=== PATIENT | female | born 1975 | race Caucasian/White ===

== ENCOUNTER 2016-08-23 06:58 | Inpatient (IN) | payer OTHER ==
[~2016-08-23] VITALS: Ht 175.3 cm; Wt 136.1 kg
[2016-08-23] VITALS (11 sets, daily range): BP systolic 96–145; BP diastolic 52–85
[~2016-08-23 06:58] MED LIST: CEPHALEXIN500 MG ORAL; CLINDAMYCIN HC150 MG ORAL; NORCO 5-325 TA1 EAC1 ORAL; VIBRAMYCIN100 MG ORAL
[2016-08-23] MEDS ORDERED: Bacitracin 50000 Units Vial ONE (07:33)
[2016-08-23] MEDS ORDERED: Lidocaine 1% 10mg/ml/Epi 0.005mg/ml 30ml vial INJ ONE (07:33)
[2016-08-23] MEDS ORDERED: Bacitracin Oint 15gm Tube TOPIC ONE (07:34)
[2016-08-23] MEDS ORDERED: LEXAPRO10 MG ORAL (07:34)
[2016-08-23 07:45] LABS: BASOPHILS % (AUTO) 1.1 % (0.0-2.0); EOSINOPHILS % (AUTO) 1.2 % (0.0-3.0); LYMPHOCYTES % (AUTO) 32.9 % (20.0-45.0); MEAN CORPUSCULAR HEMOGLOBIN 23.8 PG (27.0-31.0); MEAN CORPUSCULAR HGB CONC 31.3 G/DL (32.0-36.0); MEAN CORPUSCULAR VOLUME 76 FL (80-99); MONOCYTES % (AUTO) 8.8 % (1.0-10.0); NEUTROPHILS % (AUTO) 56.1 % (45.0-75.0); PLATELET COUNT 322 K/UL (150-450); RED BLOOD COUNT 4.42 M/UL (4.20-5.40); RED CELL DISTRIBUTION WIDTH 13.4 % (11.6-14.8); WHITE BLOOD COUNT 5.6 K/UL (4.8-10.8)
[2016-08-23 08:01] LABS: ANION GAP 16 (5-15); CALCIUM 9.3 mg/dL (8.6-10.2); CARBON DIOXIDE 26 mEQ/L (20-30); CHLORIDE 96 mEQ/L (98-107); CREATININE 0.7 mg/dL (0.5-0.9); GLOMERULAR FILTRATION RATE > 60 mL/min (>60); HEMOLYSIS 109; POTASSIUM 4.4 mEQ/L (3.4-4.9); SODIUM 138 mEQ/L (135-145)
--- NOTE | 2016-08-23 08:21 | Pre-Procedure Note/Attestation ---
Pre-Procedure Note/Attestation Complete Prior to Procedure Planned Procedure: bilateral Procedure Narrative: Debridement of bilateral groin/thigh region with flap closure Attestation I attest that I discussed the nature of the procedure; its benefits; risks and complications; and alternatives (and the risks and benefits of such alternatives ), prior to the procedure, with the patient (or the patient's legal technical service representative). I attest that, if there was a reasonable possibility of needing a blood transfusion, the patient (or the patient's legal technical service representative) was given the [facility] standardized written summary, pursuant to the José Miguel Fili Blood Safety Act ([place] Health and Safety Code # 1645, as amended). I attest that I re-evaluated the patient just prior to the surgery and that there has been no change in the patient's H&P, except as documented below: MARÍA ELENA LANDRUM Aug 23, 2016 08:21
[2016-08-23] MEDS ORDERED: Morphine Sulfate 2mg/ml Inj IVP PRN ×2 (08:30→10:00)
[2016-08-23] MEDS ORDERED: EPINEPHrine 1mg/1ml Amp ONE ×2 (08:39→09:41)
[2016-08-23] MEDS ORDERED: NS Irrig 1000ml ONE (09:00)
[2016-08-23] MEDS ORDERED: Midazolam 2mg/2ml Inj ONE (09:00)
[2016-08-23] MEDS ORDERED: LR 1000ml ONE (09:00)
[2016-08-23] MEDS ORDERED: Ketorolac 30mg Inj ONE (09:00)
[2016-08-23] MEDS ORDERED: fentaNYL 100 mcg/2 mL IV ONE (09:00)
[2016-08-23] MEDS ORDERED: Sterile Water Irrig 1000ml IRRIG ONE (09:00)
[2016-08-23] MEDS ORDERED: Heparin 5000 units/ml inj SUBQ ONE (09:00)
[2016-08-23] MEDS ORDERED: Morphine Sulfate 10mg/ml Inj ONE (09:00)
[2016-08-23] MEDS ORDERED: NS Irrig 1000ml IRRIG ONE (09:26)
[2016-08-23] MEDS ORDERED: Propofol 10mg/ml 20ml IV ONE (09:35)
[2016-08-23] MEDS: LR 1000ml 1,000 ML IVLG SCH ×2 (09:53→12:44)
--- NOTE | 2016-08-23 09:53 | Anethesia Preoperative Eval ---
Anesthesia Pre-op PMH/ROS General Date of Evaluation: Aug 23, 2016 Time of Evaluation: 08:50 Anesthesiologist: Hussain ASA Score: ASA 3 Mallampati Score Class I : Soft palate, uvula, fauces, pillars visible Class II: Soft palate, uvula, fauces visible Class III: Soft palate, base of uvula visible Class IV: Only hard plate visible Mallampati Classification: Class II Surgeon: Alaina Diagnosis: Recurrent hydradenitis Surgical Procedure: Excision and closure of bilateral groin wounds Anesthesia History: none Family History: no anesthesia problems Allergies: Coded Allergies: No Known Allergies (Unverified , 04/09/16) Medications: see eMAR Past Medical History Cardiovascular: Denies: CAD, HTN, GA, arrhythmia, other, valve dz Pulmonary: Reports: JOSÉ ANTONIO, Denies: COPD, asthma, other Gastrointestinal/Genitourinary: Reports: GERD, Denies: CRI, ESRD, other Neurologic/Psychiatric: Reports: depression/anxiety, Denies: CVA, TIA, dementia, other Endocrine: Denies: DM, hypothyroidism, other, steroids HEENT: Denies: TUSCARORA (L), TUSCARORA (R), cataract (L), cataract (R), glaucoma, other Hematology/Immune: Reports: anemia - mild, Denies: DVT, bleeding disorder, other Musculoskeletal/Integumentary: Reports: other - recurent HS, Denies: DDD, DJD, OA, RA, edema Other: obesity PMH Narrative: as above PSxH Narrative: see chart Anesthesia Pre-op Phys. Exam Physician Exam Last Vital Signs Date Time Temp Pulse Resp B/P Pulse Ox O2 Delivery O2 Flow Rate FiO2 08/23/16 07:47 97.7 62 20 109/66 100 Room Air Constitutional: NAD Neurologic: CN 2-12 intact Cardiovascular: RRR, no M/R/G Respiratory: CTA Gastrointestinal: other - obesity Airway Exam Mallampati Score: Class II MO: full Neck: flexible ROM: full Teeth: intact Dentures: no lower, no upper Anesthesia Pre-op A/P Labs Hematology Test 08/23/16 07:25 White Blood Count 5.6 K/UL (4.8-10.8) Red Blood Count 4.42 M/UL (4.20-5.40) Hemoglobin 10.5 G/DL (12.0-16.0) L Hematocrit 33.7 % (37.0-47.0) L Mean Corpuscular Volume 76 FL (80-99) L Mean Corpuscular Hemoglobin 23.8 PG (27.0-31.0) L Mean Corpuscular Hemoglobin Concent 31.3 G/DL (32.0-36.0) L Red Cell Distribution Width 13.4 % (11.6-14.8) Platelet Count 322 K/UL (150-450) Mean Platelet Volume 8.0 FL (6.5-10.1) Neutrophils (%) (Auto) 56.1 % (45.0-75.0) Lymphocytes (%) (Auto) 32.9 % (20.0-45.0) Monocytes (%) (Auto) 8.8 % (1.0-10.0) Eosinophils (%) (Auto) 1.2 % (0.0-3.0) Basophils (%) (Auto) 1.1 % (0.0-2.0) Chemistry Test 08/23/16 07:25 Sodium Level 138 mEQ/L (135-145) Potassium Level 4.4 mEQ/L (3.4-4.9) Chloride Level 96 mEQ/L (98-107) L Carbon Dioxide Level 26 mEQ/L (20-30) Anion Gap 16 (5-15) H Blood Urea Nitrogen 10 mg/dL (7-23) Creatinine 0.7 mg/dL (0.5-0.9) Estimat Glomerular Filtration Rate > 60 mL/min (>60) Glucose Level 95 mg/dL (74-106) Calcium Level 9.3 mg/dL (8.6-10.2) Urine Test Test 08/23/16 07:15 Urine HCG, Qualitative Negative Risk Assessment & Plan Assessment: ASA 3 Plan: GA with LMA Status Change Before Surgery: No Pre-Antibiotics Drug: Ancef 2gr. Given Within 1 Hr of Incision: Yes Time Given: 09:18 KENTON CALL M.D. Aug 23, 2016 09:53
[2016-08-23] MEDS ORDERED: Midazolam 2mg/2ml Inj IVP PRN (10:00)
[2016-08-23] MEDS ORDERED: DiphenhydrAMINE 50mg/ml Inj IVP PRN (10:00)
[2016-08-23] MEDS ORDERED: Metoclopramide 10mg/2ml Inj IVP PRN (10:00)
[2016-08-23] MEDS ORDERED: Ketorolac 30mg Inj IV PRN (10:00)
[2016-08-23] MEDS ORDERED: Hydromorphone 0.5mg/0.5ml inj IVP PRN (10:00)
[2016-08-23] MEDS ORDERED: Meperidine 25mg/ml Inj IV PRN (10:00)
--- NOTE | 2016-08-23 10:32 | Operative Note - PDOC ---
Operative Note Operative Note Pre-op Diagnosis: Bilateral groin abscesses and mons abscess Procedure: Debridement of bilateral groins and mons with flap closure Post-op Diagnosis: same as pre-op Surgeon: Alaina Design Engineer Products: [employer] Anesthesia: general Specimen: yes Complications: none Condition: stable Estimated Blood Loss: minimal Drains: none Implant(s) used?: No MARÍA ELENA LANDRUM Aug 23, 2016 10:32
--- NOTE | 2016-08-23 11:55 | Immediate Post-Op Evaluation ---
Immediate Post-Op Evalulation Immediate Post-Op Evalulation Procedure: Excision of bilateral groin hydradenitis Date of Evaluation: Aug 23, 2016 Time of Evaluation: 10:50 IV Fluids: 1000 Blood Products: none Estimated Blood Loss: min Urinary Output: none Blood Pressure Systolic: 126 Blood Pressure Diastolic: 72 Pulse Rate: 86 Respiratory Rate: 22 O2 Sat by Pulse Oximetry: 99 Temperature (Fahrenheit): 97.4 Pain Score (1-10): 2 Nausea: No Vomiting: No Complications none Patient Status: reacts, patent, none Hydration Status: adequate KENTON CALL M.D. Aug 23, 2016 11:55
--- NOTE | 2016-08-23 14:53 | History and Physical ---
History of Present Illness General Date patient seen: Aug 23, 2016 Time patient seen: 14:53 Reason for Hospitalization: groin abscess Present Illness HPI 41 y/o female with pmh of hidradenitis suppurative c/b groin abscess s/p I&D () who presents w/ recurrent groin abscesses/infection s/p excisional debridement and flap closure on 08/23/16. No periop or postop complications. No chest pain, dyspnea or palpitations. No n/v or abdominal pain. Postop pain appears well controlled. Allergies: Coded Allergies: No Known Allergies (Unverified , 04/09/16) Medication History Scheduled Escitalopram Oxalate* (Lexapro*), 10 MG ORAL DAILY, (Reported) Discontinued Medications Cephalexin* (Keflex*), 500 MG ORAL TID, (Reported) Discontinued Reason: Pt stopped taking med Cephalexin* (Keflex*), 500 MG ORAL EVERY 12 HOURS, (Reported) Discontinued Reason: Pt stopped taking med Clindamycin Hcl* (Clindamycin Hcl*), Unknown Dose ORAL FOUR TIMES A DAY, ( Reported) Discontinued Reason: Pt stopped taking med Doxycycline Hyclate* (Vibramycin*), Unknown Dose ORAL EVERY 12 HOURS, (Reported) Discontinued Reason: Pt stopped taking med Hydrocodone Bit/Acetaminophen 5-325* ([place] 5-325 Tablet*), 1 TAB ORAL Q6HR PRN for For Pain, (Reported) Discontinued Reason: Pt stopped taking med Patient History History Provided By: Patient, PMD Healthcare decision maker Resuscitation status Advanced Directive on File Past Medical/Surgical History Past Medical/Surgical History: (1) Hidradenitis suppurativa (2) Depressed bipolar I disorder in full remission (3) Depression Family History Family History: Patient reports no known family medical history. Social History Social History: (1) No significant social history Review of Systems ROS Narrative CONSTITUTIONAL: No weight loss, fever, chills, weakness or fatigue. HEENT: Eyes: No visual loss, blurred vision, double vision or yellow sclerae. Ears, Nose, Throat: No hearing loss, sneezing, congestion, runny nose or sore throat. SKIN: No rash or itching. CARDIOVASCULAR: No chest pain, chest pressure or chest discomfort. No palpitations or edema. RESPIRATORY: No shortness of breath, cough or sputum. GASTROINTESTINAL: No anorexia, nausea, vomiting or diarrhea. No abdominal pain or blood. NEUROLOGICAL: No headache, dizziness, syncope, paralysis, ataxia, numbness or tingling in the extremities. No change in bowel or bladder control. MUSCULOSKELETAL: No muscle, back pain, joint pain or stiffness. HEMATOLOGIC: No anemia, bleeding or bruising. LYMPHATICS: No enlarged nodes. No history of splenectomy. PSYCHIATRIC: No history of depression or anxiety. ENDOCRINOLOGIC: No reports of sweating, cold or heat intolerance. No polyuria or polydipsia. ALLERGIES: No history of asthma, hives, eczema or rhinitis. Physical Exam Last 24 Hour Vital Signs Date Time Temp Pulse Resp B/P Pulse Ox O2 Delivery O2 Flow Rate FiO2 08/23/16 12:00 97.2 64 18 113/65 100 Room Air 08/23/16 11:55 86 22 99 08/23/16 11:45 98.2 08/23/16 11:30 98.2 60 17 127/72 100 Nasal Cannula 3.0 08/23/16 11:15 62 25 129/76 100 Nasal Cannula 3.0 08/23/16 11:05 69 20 130/80 100 Simple Mask 6.0 08/23/16 10:54 67 16 135/81 100 Simple Mask 6.0 08/23/16 10:49 69 17 145/85 100 Simple Mask 6.0 08/23/16 10:44 97.0 88 19 129/79 100 Simple Mask 6.0 08/23/16 07:47 97.7 62 20 109/66 100 Room Air Laboratory Tests Test 08/23/16 07:15 08/23/16 07:25 Urine HCG, Qualitative Negative White Blood Count 5.6 K/UL (4.8-10.8) Red Blood Count 4.42 M/UL (4.20-5.40) Hemoglobin 10.5 G/DL (12.0-16.0) L Hematocrit 33.7 % (37.0-47.0) L Mean Corpuscular Volume 76 FL (80-99) L Mean Corpuscular Hemoglobin 23.8 PG (27.0-31.0) L Mean Corpuscular Hemoglobin Concent 31.3 G/DL (32.0-36.0) L Red Cell Distribution Width 13.4 % (11.6-14.8) Platelet Count 322 K/UL (150-450) Mean Platelet Volume 8.0 FL (6.5-10.1) Neutrophils (%) (Auto) 56.1 % (45.0-75.0) Lymphocytes (%) (Auto) 32.9 % (20.0-45.0) Monocytes (%) (Auto) 8.8 % (1.0-10.0) Eosinophils (%) (Auto) 1.2 % (0.0-3.0) Basophils (%) (Auto) 1.1 % (0.0-2.0) Sodium Level 138 mEQ/L (135-145) Potassium Level 4.4 mEQ/L (3.4-4.9) Chloride Level 96 mEQ/L (98-107) L Carbon Dioxide Level 26 mEQ/L (20-30) Anion Gap 16 (5-15) H Blood Urea Nitrogen 10 mg/dL (7-23) Creatinine 0.7 mg/dL (0.5-0.9) Estimat Glomerular Filtration Rate > 60 mL/min (>60) Glucose Level 95 mg/dL (74-106) Calcium Level 9.3 mg/dL (8.6-10.2) Height (Feet): 5 Height (Inches): 9.00 Weight (Pounds): 300 Medications Current Medications Medications (Trade) Dose Ordered Sig/Carl Route PRN Reason Start Time Stop Time Status Last Admin Dose Admin Acetaminophen (Tylenol) 650 mg Q6H PRN ORAL Fever/Headache/Mild Pain 08/23/16 15:00 09/22/16 14:59 Acetaminophen/ Hydrocodone Bitart ([place] 5/325) 1 tab Q4H PRN ORAL Moderate Pain (Pain Scale 4-6) 08/23/16 15:00 08/30/16 14:59 Heparin Sodium (Porcine) (Heparin 5000 units/ml) 5,000 units Q12HR SUBQ 08/23/16 21:00 09/22/16 20:59 Hydromorphone HCl (Dilaudid) 1 mg Q1H PRN SUBQ Severe Pain (Pain Scale 7-10) 08/23/16 15:00 08/30/16 14:59 Lactated Ringer's (Lactated Ringer's 1000ml) 1,000 ml @ 50 mls/hr Q20H IV 08/23/16 16:00 09/22/16 15:59 Ondansetron HCl 4 mg 4 mg Q6H PRN IVP Nausea & Vomiting 08/23/16 15:00 09/22/16 14:59 Objective Narrative General: alert, cooperative, no distress, appears stated age Head: normocephalic, without obvious abnormality, atraumatic Eyes: conjunctivae/corneas clear. PERRL, EOM's intact Throat: lips, mucosa, and tongue normal. MMM Neck: supple, symmetrical, trachea midline, and no JVD Lungs: clear to auscultation bilaterally Heart: regular rate and rhythm, S1, S2 normal, no murmur, click, rub or gallop Abdomen: soft, non-tender, non-distended, bowel sounds normal; no masses or organomegaly Extremities: extremities normal, atraumatic, no cyanosis or edema Pulses: 2+ and symmetric Skin: skin color, texture, turgor normal; no rashes or lesions Dressings c/d/i Neurologic: grossly normal, no focal deficits Assessment/Plan Problem List: (1) Groin abscess ICD Codes: L02.214 - Cutaneous abscess of groin SNOMED: [id number] Status: stable Assessment/Plan s/p excisional debridement and flap closure on 08/23/16, POD#0 - appreciate plastic surgery rec's - cont IV ancef - encourage mobilization/ambulation - encourage incentive spirometry to optimize pulmonary hygiene - DVT/GI prophylaxis as appropriate - pain control, supportive care, bowel regimen - cont home Roxann Phipps M.D. Aug 23, 2016 14:53
[2016-08-23] MEDS ORDERED: Norco 5mg/325mg tab ORAL PRN (15:00)
[2016-08-23] MEDS ORDERED: HYDROmorphone 1mg/ml Carpuject SUBQ PRN (15:00)
[2016-08-23] MEDS: LR 1000ml 1,000 ML IV SCH (15:51)
--- NOTE | 2016-08-23 16:48 | Operative Note - Dictated ---
DATE OF OPERATION: 08/23/2016 PREOPERATIVE DIAGNOSES: 1. Right groin abscess/infection. 2. Left groin abscess/infection. 3. Mons abscess/infection. POSTOPERATIVE DIAGNOSES: 1. Right groin abscess/infection. 2. Left groin abscess/infection. 3. Mons abscess/infection. PROCEDURES: 1. Excisional debridement of right infected groin tissue. 2. Excisional debridement of left infected groin tissue. 3. Excisional debridement of infected mons tissue. 4. Elevation of a fasciocutaneous groin flap for closure of right groin wound. 5. Elevation of a fasciocutaneous medial thigh flap for closure of right groin wound. 6. Elevation of a fasciocutaneous groin flap for closure of left groin wound. 7. Elevation of a medial thigh flap for closure of left groin wound. 8. Elevation of fasciocutaneous flap for closure of mons wound. 9. Elevation of an inferior fasciocutaneous flap for closure of mons wound. SURGEON: Veronica Foley M.D. SALES SUPPORT COORDINATOR: Raisa Hammer M.D. ANESTHESIA: General. EBL: Minimal. COMPLICATIONS: None. SPECIMEN: Right and left groin as well as mons tissue. DISPOSITION: Stable to the recovery room. INDICATIONS FOR SURGERY: This is a 41-year-old female, who presented to me in the office for her bilateral groin abscesses as well as mons abscess. She was felt to be an appropriate candidate for debridement and reconstruction. We obtained an authorization from the insurance company in the form of a gap exception or an in-network exception to allow for us to provide this service to the patient and for her to undergo reconstruction following the debridement. She understood the risks and benefits of surgery and agreed to proceed. DETAILS OF THE OPERATION: The patient was brought to the operating room and laid in the lithotomy position on the operating table. Her lower abdomen, groin, and perineal regions were prepped and draped in a sterile usual fashion. There were 3 discrete areas, one in the left groin, on in the right groin, and one in the mons, which were all delineated using elliptical type of designs. Once this was done, a total of 10 mL of lidocaine with epinephrine was injected into the regions of the markings. We first began by addressing the left groin. A 10 blade was used to make the elliptical incision all the way around the infected areas and we were able to completely excise it down to healthy bleeding fat. In a similar fashion, the mons tissue was debrided with a #10 blade down to skin removing it all the way down to the level of the subcutaneous fat and appeared to be healthy wound, and the last was the right groin wound, which was addressed by an elliptical incision made to allow for the excisional debridement all way down to the level of the subcutaneous fat. Once this was done, the wound was copiously irrigated with pulse lavage. Hemostasis was achieved and we then began to assess the wounds and the ability to be closed primarily and this was not possible. As such, flaps had to be elevated to allow for a tension-free repair of the wounds. We first began on the right groin. A fasciocutaneous groin flap was elevated with undermining performed to fully mobilize the flap, with proximal and distal incisions made to fully mobilize the flap as well, with perforators off of the pudendal artery perfusing this flap. Following this, a medial thigh flap based off of perforators of the superficial femoral artery was elevated. This was performed by elevating at the fasciocutaneous level with proximal and distal incisions also made to fully mobilize the flap. With both flaps fully mobilized, it was noted that the wound could be closed without tension. We then proceeded to perform a similar flap elevation on the contralateral left groin with an elevation of a groin flap with proximal and distal incisions made to fully mobilize the flap, again having a similar blood supply as the contralateral side. A medial thigh flap based off of perforators of the superficial femoral artery was elevated on the left side with proximal and distal incisions made to fully mobilize the flap at the fasciocutaneous level. Again with both flaps elevated, there was noted to be good approximation without tension. Finally, a superior fasciocutaneous flap and an inferior fasciocutaneous flap were elevated for closure of the mons wound. First the superior flap was elevated with a full-thickness flap elevated with proximal and distal incisions made to fully mobilize the flap with perforators off of the deep inferior epigastric artery feeding this flap, and for the inferior fasciocutaneous flap, a similar full-thickness flap was elevated with proximal and distal incisions made to fully mobilize the flap with a similar blood supply to the superior flap. The wounds were then again copiously irrigated and were closed in layered fashion using #0 and 2-0 Vicryl sutures, and multiple interrupted 2-0 Prolene sutures were used to close the skin. Dermabond was then placed and compressive dressings were applied. The patient tolerated the procedure well. There were no complications. Veronica Foley M.D. DR: JERONIMO JOB#: [id number] CC:
[2016-08-23] MEDS: ceFAZolin sod 1 GM in D5W 55 ML IVPB SCH (18:40)
[2016-08-23] MEDS: Heparin 5000 units/ml inj SUBQ SCH (19:59)
[2016-08-24] VITALS: BP 111/65
[2016-08-24] MEDS: ceFAZolin sod 1 GM in D5W 55 ML IVPB SCH ×3 (00:13→16:24)
[2016-08-24 04:00] VITALS: BP 103/62
[2016-08-24] MEDS: LR 1000ml 1,000 ML IV SCH (05:33)
[2016-08-24 08:00] VITALS: BP 135/87
[2016-08-24] MEDS: Heparin 5000 units/ml inj SUBQ SCH (09:11)
--- NOTE | 2016-08-24 10:29 | 48 Hour Post Anesthesia Eval ---
Post Anesthesia Evaluation Procedure: Excision of bilateral groin hydradenitis Date of Evaluation: Aug 24, 2016 Time of Evaluation: 10:28 Blood Pressure Systolic: 137 0: 74 Pulse Rate: 80 Respiratory Rate: 20 Temperature (Fahrenheit): 98.1 O2 Sat by Pulse Oximetry: 98 Airway: patent Nausea: No Vomiting: No Pain Intensity: 3 Hydration Status: adequate Cardiopulmonary Status: Stable Mental Status/LOC: patient returned to baseline Follow-up Care/Observations: na Post-Anesthesia Complications: na Follow-up care needed: N/A JAXON GARG M.D. Aug 24, 2016 10:29
[2016-08-24 12:22] VITALS: BP 103/64
[2016-08-24 16:00] VITALS: BP 102/57
[2016-08-24] MEDS ORDERED: KEFLEX500 MG ORAL (16:10)
--- NOTE | 2016-08-24 16:12 | Discharge Summary ---
Discharge Summary Hospital Course Date of Admission Aug 23, 2016 at 12:00 Date of Discharge 08/24/16 Admitting Diagnosis Groin abscess Reason for Hospitalization: Surgery HPI 41 y/o female with pmh of hidradenitis suppurative c/b groin abscess s/p I&D () who presents w/ recurrent groin abscesses/infection. Consultations Plastic surgery Procedures 08/23/16 1. Excisional debridement of right infected groin tissue. 2. Excisional debridement of left infected groin tissue. 3. Excisional debridement of infected mons tissue. 4. Elevation of a fasciocutaneous groin flap for closure of right groin wound. 5. Elevation of a fasciocutaneous medial thigh flap for closure of right groin wound. 6. Elevation of a fasciocutaneous groin flap for closure of left groin wound. 7. Elevation of a medial thigh flap for closure of left groin wound. 8. Elevation of fasciocutaneous flap for closure of mons wound. 9. Elevation of an inferior fasciocutaneous flap for closure of mons wound. Hospital Course Pt underwent excisional debridement and flap closure on 08/23/16. Once pt's pain was controlled and wounds stable, pt was discharged. Extra time spent was 32 min above and beyond normal encounter time including counseling/coordination of care. Discussed with patient pain control, disposition, prescriptions, outpatient followup. Discharge Medications New Medications: Cephalexin* (Keflex*) 500 Mg Capsule 500 MG ORAL Q6H for 7 Days, #28 CAP 0 Refills Continued Medications: Escitalopram Oxalate* (Lexapro*) 10 Mg Tablet 10 MG ORAL DAILY, TAB Hydrocodone Bit/Acetaminophen 5-325* ([place] 5-325 Tablet*) 1 Each Tablet 1 TAB ORAL Q6HR PRN for For Pain, #30 TAB Ibuprofen* (Motrin*) 600 Mg Tablet 800 MG ORAL Q8H PRN for For Pain, #45 TAB 0 Refills Ondansetron Odt* (Zofran Odt*) 4 Mg Tab.rapdis 4 MG ORAL Q6H PRN for Nausea & Vomiting, #30 TAB Discharge Condition Upon Discharge: stable Discharge Disposition Patient was discharged to Home (01) Discharge Diagnoses: (1) Groin abscess (2) Hidradenitis suppurativa Roxann Wilcox M.D. Aug 24, 2016 16:12
[2016-08-24] MEDS ORDERED: ZOFRAN ODT4 MG ORAL (17:15)
[2016-08-24] MEDS ORDERED: IBUPROFEN600 MG ORAL (17:16)
[2016-08-24] MEDS ORDERED: NORCO 5-325 TA1 EAC1 ORAL (17:17)
[2016-08-24] MEDS ORDERED: Tubing IV Secondary IV ONE (17:49)
[2016-08-24] MEDS ORDERED: LR 1000ml ONE (17:49)
== END 2016-08-24 17:50 | disposition home or self-care (01) | DRG 572 ==
LOC: SUR 06:58 → 3E 12:00 → SUR 12:00 → 3E 12:00
DX: L02.214 Cutaneous abscess of groin (principal); F32.9 Major depressive disorder, single episode, unspecified; L73.2 Hidradenitis suppurativa; L02.215 Cutaneous abscess of perineum
CPT/HCPCS: 36415; 80048; 81025; 85025; 94003; 94150; J2250; J2405; J2765

== ENCOUNTER 2016-09-20 07:21 | Inpatient (IN) | payer OTHER ==
[~2016-09-20] VITALS: Ht 175.3 cm; Wt 136.1 kg
[2016-09-20] VITALS (9 sets, daily range): BP systolic 110–137; BP diastolic 59–84
[~2016-09-20 07:21] MED LIST changes: +IBUPROFEN600 MG ORAL; +KEFLEX500 MG ORAL; +LEXAPRO10 MG ORAL; +ZOFRAN ODT4 MG ORAL
[2016-09-20] MEDS ORDERED: Zemuron 50mg/5ml Inj IV ONE (07:22)
[2016-09-20] MEDS ORDERED: Ketorolac 30mg Inj ONE (07:22)
[2016-09-20] MEDS ORDERED: Propofol 10mg/ml 20ml IV ONE ×2 (07:22→10:41)
[2016-09-20] MEDS ORDERED: Succinylcholine 20mg/ml 10ml vial ONE (07:22)
[2016-09-20] MEDS ORDERED: fentaNYL 100 mcg/2 mL IV ONE (07:22)
[2016-09-20] MEDS ORDERED: Midazolam 2mg/2ml Inj ONE (07:22)
[2016-09-20] MEDS ORDERED: Glycopyrrolate 0.2mg/ml 1ml Vial ONE (07:22)
[2016-09-20] MEDS ORDERED: Neostigmine 1mg/ml 10ml Inj ONE (07:22)
[2016-09-20] MEDS ORDERED: LR 1000ml ONE (07:22)
--- NOTE | 2016-09-20 08:15 | Pre-Procedure Note/Attestation ---
Pre-Procedure Note/Attestation Complete Prior to Procedure Planned Procedure: bilateral Procedure Narrative: Closure of groin wounds and debridement of buttock wounds with flap closure Attestation I attest that I discussed the nature of the procedure; its benefits; risks and complications; and alternatives (and the risks and benefits of such alternatives ), prior to the procedure, with the patient (or the patient's legal retail field representative). I attest that, if there was a reasonable possibility of needing a blood transfusion, the patient (or the patient's legal retail field representative) was given the [facility] standardized written summary, pursuant to the José Miguel Fili Blood Safety Act ([place] Health and Safety Code # 1645, as amended). I attest that I re-evaluated the patient just prior to the surgery and that there has been no change in the patient's H&P, except as documented below: MARÍA ELENA LANDRUM Sep 20, 2016 08:15
[2016-09-20 08:27] LABS: BASOPHILS % (AUTO) 1.2 % (0.0-2.0); EOSINOPHILS % (AUTO) 1.5 % (0.0-3.0); LYMPHOCYTES % (AUTO) 33.2 % (20.0-45.0); MEAN CORPUSCULAR HEMOGLOBIN 23.6 PG (27.0-31.0); MEAN CORPUSCULAR VOLUME 79 FL (80-99); MEAN PLATELET VOLUME 7.8 FL (6.5-10.1); MONOCYTES % (AUTO) 8.8 % (1.0-10.0); NEUTROPHILS % (AUTO) 55.2 % (45.0-75.0); PLATELET COUNT 313 K/UL (150-450); RED BLOOD COUNT 4.41 M/UL (4.20-5.40); RED CELL DISTRIBUTION WIDTH 15.4 % (11.6-14.8); WHITE BLOOD COUNT 5.6 K/UL (4.8-10.8)
[2016-09-20 08:36] LABS: PROTHROMBIN TIME 10.6 SEC (9.30-11.50)
[2016-09-20 08:49] LABS: ANION GAP 13 (5-15); CARBON DIOXIDE 26 mEQ/L (20-30); CHLORIDE 100 mEQ/L (98-107); CREATININE 0.7 mg/dL (0.5-0.9); GLOMERULAR FILTRATION RATE > 60 mL/min (>60); HEMOLYSIS 2; POTASSIUM 3.7 mEQ/L (3.4-4.9); SODIUM 139 mEQ/L (135-145)
[2016-09-20] MEDS ORDERED: Surgicel 4in x 8in TOPIC ONE (08:54)
[2016-09-20] MEDS ORDERED: Bacitracin 50000 Units Vial ONE (08:55)
[2016-09-20] MEDS ORDERED: Lidocaine 1% 10mg/ml/Epi 0.005mg/ml 30ml vial INJ ONE (08:55)
[2016-09-20] MEDS ORDERED: EPINEPHrine 1mg/1ml Amp ONE (08:55)
[2016-09-20] MEDS ORDERED: NS Irrig 1000ml IRRIG ONE (11:05)
[2016-09-20] MEDS ORDERED: LR 1000ml 1,000 ML IVLG SCH (12:15)
[2016-09-20] MEDS ORDERED: Metoclopramide 10mg/2ml Inj IVP PRN (12:15)
[2016-09-20] MEDS ORDERED: Ketorolac 30mg Inj IV PRN (12:15)
[2016-09-20] MEDS ORDERED: Hydromorphone 0.5mg/0.5ml inj IVP PRN (12:15)
[2016-09-20] MEDS ORDERED: DiphenhydrAMINE 50mg/ml Inj IVP PRN (12:15)
[2016-09-20] MEDS ORDERED: Meperidine 25mg/ml Inj IV PRN (12:15)
[2016-09-20] MEDS ORDERED: Midazolam 2mg/2ml Inj IVP PRN (12:15)
--- NOTE | 2016-09-20 12:15 | Anethesia Preoperative Eval ---
Anesthesia Pre-op PMH/ROS General Date of Evaluation: Sep 20, 2016 Time of Evaluation: 10:50 Anesthesiologist: Hussain ASA Score: ASA 3 Mallampati Score Class I : Soft palate, uvula, fauces, pillars visible Class II: Soft palate, uvula, fauces visible Class III: Soft palate, base of uvula visible Class IV: Only hard plate visible Mallampati Classification: Class II Surgeon: Alaina Diagnosis: Recurrent HS Surgical Procedure: Revision and closure of bilateral groin wounds Anesthesia History: none Social History: smoking - h/o Family History: no anesthesia problems Allergies: Coded Allergies: No Known Allergies (Unverified , 04/09/16) Past Medical History Cardiovascular: Denies: CAD, HTN, [place], arrhythmia, other, valve dz Pulmonary: Reports: JOSÉ ANTONIO, Denies: COPD, asthma, other Gastrointestinal/Genitourinary: Reports: GERD, Denies: CRI, ESRD, other Neurologic/Psychiatric: Reports: depression/anxiety, Denies: CVA, TIA, dementia, other Endocrine: Denies: DM, hypothyroidism, other, steroids HEENT: Denies: [place] (L), [place] (R), cataract (L), cataract (R), glaucoma, other Hematology/Immune: Reports: anemia - mild, Denies: DVT, bleeding disorder, other Musculoskeletal/Integumentary: Reports: other - recurrent HS, Denies: DDD, DJD, OA, RA, edema Other: obesity PMH Narrative: as above PSxH Narrative: see chart Anesthesia Pre-op Phys. Exam Physician Exam Last Vital Signs Date Time Temp Pulse Resp B/P Pulse Ox O2 Delivery O2 Flow Rate FiO2 09/20/16 07:35 97.5 61 20 110/61 99 Room Air Constitutional: NAD Neurologic: CN 2-12 intact Cardiovascular: RRR, no M/R/G Respiratory: CTA Gastrointestinal: other - obesity Airway Exam Mallampati Score: Class II MO: full Neck: flexible ROM: full Teeth: intact Dentures: no lower, no upper Anesthesia Pre-op A/P Labs Hematology Test 09/20/16 08:00 White Blood Count 5.6 K/UL (4.8-10.8) Red Blood Count 4.41 M/UL (4.20-5.40) Hemoglobin 10.4 G/DL (12.0-16.0) L Hematocrit 34.7 % (37.0-47.0) L Mean Corpuscular Volume 79 FL (80-99) L Mean Corpuscular Hemoglobin 23.6 PG (27.0-31.0) L Mean Corpuscular Hemoglobin Concent 30.0 G/DL (32.0-36.0) L Red Cell Distribution Width 15.4 % (11.6-14.8) H Platelet Count 313 K/UL (150-450) Mean Platelet Volume 7.8 FL (6.5-10.1) Neutrophils (%) (Auto) 55.2 % (45.0-75.0) Lymphocytes (%) (Auto) 33.2 % (20.0-45.0) Monocytes (%) (Auto) 8.8 % (1.0-10.0) Eosinophils (%) (Auto) 1.5 % (0.0-3.0) Basophils (%) (Auto) 1.2 % (0.0-2.0) Coagulation Test 09/20/16 08:00 Prothrombin Time 10.6 SEC (9.30-11.50) Prothromb Time International Ratio 1.0 (0.9-1.1) Activated Partial Thromboplast Time 24 SEC (23-33) Chemistry Test 09/20/16 08:00 Sodium Level 139 mEQ/L (135-145) Potassium Level 3.7 mEQ/L (3.4-4.9) Chloride Level 100 mEQ/L (98-107) Carbon Dioxide Level 26 mEQ/L (20-30) Anion Gap 13 (5-15) Blood Urea Nitrogen 10 mg/dL (7-23) Creatinine 0.7 mg/dL (0.5-0.9) Estimat Glomerular Filtration Rate > 60 mL/min (>60) Glucose Level 98 mg/dL (74-106) Calcium Level 9.0 mg/dL (8.6-10.2) Risk Assessment & Plan Assessment: ASA 3 Plan: GA with ETT Status Change Before Surgery: No Pre-Antibiotics Drug: Ancef 2gr. Given Within 1 Hr of Incision: Yes Time Given: 11:20 KENTON CALL M.D. Sep 20, 2016 12:14
--- NOTE | 2016-09-20 12:51 | Operative Note - PDOC ---
Operative Note Operative Note Pre-op Diagnosis: Groin and thigh wounds Procedure: Debridement of groin and thigh wounds with flap closure Post-op Diagnosis: same as pre-op Surgeon: Alaina Nursing Unit Clerk: Harman Anesthesia: general Specimen: yes Complications: none Condition: stable Estimated Blood Loss: minimal Drains: none Implant(s) used?: No MARÍA ELENA LANDRUM Sep 20, 2016 12:51
[2016-09-20] MEDS ORDERED: Zolpidem 5mg tab ORAL PRN (13:00)
--- NOTE | 2016-09-20 13:33 | Immediate Post-Op Evaluation ---
Immediate Post-Op Evalulation Immediate Post-Op Evalulation Procedure: Revision and closure of bilateral groin wounds Date of Evaluation: Sep 20, 2016 Time of Evaluation: 13:32 IV Fluids: 1100 Blood Products: none Estimated Blood Loss: 50 Urinary Output: 200 Blood Pressure Systolic: 132 Blood Pressure Diastolic: 62 Pulse Rate: 72 Respiratory Rate: 20 O2 Sat by Pulse Oximetry: 99 Temperature (Fahrenheit): 97.4 Pain Score (1-10): 2 Nausea: No Vomiting: No Complications none Patient Status: reacts, patent, extubated, none Hydration Status: adequate KENTON CALL M.D. Sep 20, 2016 13:33
[2016-09-20] MEDS ORDERED: Rate Change PCA 1 Each MISC PRN (14:00)
[2016-09-20] MEDS: PCA HYDROmorphone 1mg/ml 30 ML IV PRN (14:07)
--- NOTE | 2016-09-20 14:28 | History and Physical ---
History of Present Illness General Date patient seen: Sep 20, 2016 Time patient seen: 14:25 Present Illness HPI 41 y/o female with hx of hidradenitis, s/p I+D earlier today. No periop or postop complications. No chest pain or dyspnea. Postop pain well controlled. No n/v. Allergies: Coded Allergies: No Known Allergies (Unverified , 04/09/16) Medication History Scheduled Escitalopram Oxalate* (Lexapro*), 10 MG ORAL DAILY, (Reported) Discontinued Medications Cephalexin* (Keflex*), 500 MG ORAL Q6H Discontinued Reason: Pt stopped taking med Hydrocodone Bit/Acetaminophen 5-325* ([place] 5-325 Tablet*), 1 TAB ORAL Q6HR PRN for For Pain, (Reported) Discontinued Reason: Pt stopped taking med Ibuprofen* (Motrin*), 800 MG ORAL Q8H PRN for For Pain, (Reported) Discontinued Reason: Pt stopped taking med Ondansetron Odt* (Zofran Odt*), 4 MG ORAL Q6H PRN for Nausea & Vomiting, ( Reported) Discontinued Reason: Pt stopped taking med Patient History History Provided By: Patient Healthcare decision maker Resuscitation status Advanced Directive on File Family History Family History: Patient reports no known family medical history. Social History Social History: (1) No significant social history Review of Systems ROS Narrative Patient in PACU Physical Exam Physical Exam Narrative Not examined, pt in PACU Last 24 Hour Vital Signs Date Time Temp Pulse Resp B/P Pulse Ox O2 Delivery O2 Flow Rate FiO2 09/20/16 14:19 49 20 137/69 100 Nasal Cannula 3.0 09/20/16 14:07 18 09/20/16 14:04 52 20 127/72 100 Simple Mask 8.0 09/20/16 13:33 52 20 127/72 100 Simple Mask 8.0 09/20/16 13:33 72 20 99 09/20/16 13:28 76 20 134/80 99 Simple Mask 8.0 09/20/16 13:23 97.6 82 20 130/84 99 Simple Mask 8.0 09/20/16 07:35 97.5 61 20 110/61 99 Room Air Laboratory Tests Test 09/20/16 08:00 White Blood Count 5.6 K/UL (4.8-10.8) Red Blood Count 4.41 M/UL (4.20-5.40) Hemoglobin 10.4 G/DL (12.0-16.0) L Hematocrit 34.7 % (37.0-47.0) L Mean Corpuscular Volume 79 FL (80-99) L Mean Corpuscular Hemoglobin 23.6 PG (27.0-31.0) L Mean Corpuscular Hemoglobin Concent 30.0 G/DL (32.0-36.0) L Red Cell Distribution Width 15.4 % (11.6-14.8) H Platelet Count 313 K/UL (150-450) Mean Platelet Volume 7.8 FL (6.5-10.1) Neutrophils (%) (Auto) 55.2 % (45.0-75.0) Lymphocytes (%) (Auto) 33.2 % (20.0-45.0) Monocytes (%) (Auto) 8.8 % (1.0-10.0) Eosinophils (%) (Auto) 1.5 % (0.0-3.0) Basophils (%) (Auto) 1.2 % (0.0-2.0) Prothrombin Time 10.6 SEC (9.30-11.50) Prothromb Time International Ratio 1.0 (0.9-1.1) Activated Partial Thromboplast Time 24 SEC (23-33) Sodium Level 139 mEQ/L (135-145) Potassium Level 3.7 mEQ/L (3.4-4.9) Chloride Level 100 mEQ/L (98-107) Carbon Dioxide Level 26 mEQ/L (20-30) Anion Gap 13 (5-15) Blood Urea Nitrogen 10 mg/dL (7-23) Creatinine 0.7 mg/dL (0.5-0.9) Estimat Glomerular Filtration Rate > 60 mL/min (>60) Glucose Level 98 mg/dL (74-106) Calcium Level 9.0 mg/dL (8.6-10.2) Height (Feet): 5 Height (Inches): 9.00 Weight (Pounds): 300 Medications Current Medications Medications (Trade) Dose Ordered Sig/Carl Route PRN Reason Start Time Stop Time Status Last Admin Dose Admin Acetaminophen (Tylenol) 325 mg Q4H PRN ORAL Mild Pain (Pain Scale 1-3) 09/20/16 12:15 09/20/16 18:00 Diphenhydramine HCl (Benadryl) 25 mg Q15M PRN IVP Itching 09/20/16 12:15 09/20/16 18:00 Heparin Sodium (Porcine) (Heparin 5000 units/ml) 5,000 units EVERY 12 HOURS SUBQ 09/20/16 21:00 10/20/16 20:59 UNV Hydromorphone HCl (Dilaudid) 0.5 mg Q15M PRN IVP Severe Pain (Pain Scale 7-10) 09/20/16 12:15 09/20/16 18:00 09/20/16 14:19 Hydromorphone HCl (Dilaudid) 2 mg Q3H PRN SUBQ Severe Pain (Pain Scale 7-10) 09/20/16 14:02 09/22/16 14:01 Hydromorphone HCl (Dilaudid) 2 mg Q4H PRN IVP Moderate Pain (Pain Scale 4-6) 09/20/16 14:02 09/22/16 14:01 Hydromorphone HCl (SENIOR DATA ARCHITECT Dilaudid) 30 ml @ 0 mls/hr Q24H PRN IV For Pain 09/20/16 14:00 09/22/16 13:59 09/20/16 14:07 Ketorolac Tromethamine (Toradol 30mg) 30 mg Q1H PRN IV Severe Breakthru Pain (>7) 09/20/16 12:15 09/20/16 18:00 Meperidine HCl (Demerol) 50 mg Q15M PRN IV Shivering 09/20/16 12:15 09/20/16 18:00 Midazolam HCl (Versed 2mg/2ml vial) 1 mg Q15M PRN IVP For Anxiety 09/20/16 12:15 09/20/16 18:00 Miscellaneous Medication (SENIOR DATA ARCHITECT Rate Change) 1 ea DAILY PRN MISC rate change 09/20/16 14:00 09/22/16 13:59 Miscellaneous Medication (SENIOR DATA ARCHITECT shift volume) 1 ea Q12HR@0700,1900 MISC 09/20/16 19:00 09/22/16 18:59 Ondansetron HCl (Zofran) 4 mg Q6H PRN IVP Nausea & Vomiting 09/20/16 13:00 10/20/16 12:59 UNV Zolpidem Tartrate 5 mg 5 mg DAILYPRN PRN ORAL Insomnia 09/20/16 13:00 10/20/16 12:59 UNV Assessment/Plan Problem List: (1) Groin abscess Assessment & Plan: - s/p I+D POD#0 - Start IV abx - encourage mobilization/ambulation - encourage incentive spirometry to optimize pulmonary hygiene - DVT/GI prophylaxis as appropriate - ctm CBC and hemodynamics - ctm electrolytes, adjust/replete prn - PT/OT/ST, if indicated - pain control, supportive care, bowel regimen ICD Codes: L02.214 - Cutaneous abscess of groin SNOMED: 28415410 ENID DAVIS Sep 20, 2016 14:28
[2016-09-20] MEDS: PCA shift volume MISC SCH (15:06)
[2016-09-20] MEDS: ceFAZolin sod 1 GM in NS 55 ML IVPB SCH (17:43)
--- NOTE | 2016-09-20 19:58 | Operative Note - Dictated ---
DATE OF OPERATION: 09/20/2016 PREOPERATIVE DIAGNOSES: Bilateral groin and bilateral buttock/thigh wounds. POSTOPERATIVE DIAGNOSES: Bilateral groin and bilateral buttock/thigh wounds. PROCEDURES: 1. Left groin wound debridement. 2. Elevation of a superior fasciocutaneous flap for closure of left groin wound. 3. Elevation of an inferior fasciocutaneous flap for closure of right groin wound. 4. Debridement of right groin wound. 5. Elevation of a superior fasciocutaneous flap for closure of right groin wound. 6. Elevation of an inferior fasciocutaneous flap for closure of right groin wound. 7. Debridement of right inner thigh wound. 8. Elevation of the medial thigh flap for closure of right inner thigh wound. 9. Debridement of left thigh wound. 10. Elevation of a medial thigh flap for closure of left thigh wound. 11. Debridement of perianal tissue x2. 12. Complex closure of perianal tissue measuring total of 8.5 centimeters. SURGEON: Veronica Foley M.D. VEGETABLE VENDOR: Raisa Hammer M.D. ANESTHESIA: General. ESTIMATED BLOOD LOSS: 25 mL. SPECIMEN: Included a total of six different tissue specimen. DRAINS: None. COMPLICATIONS: None. DISPOSITION: Stable to the recovery room. INDICATIONS FOR SURGERY: This is a 41-year-old female, who presents with multiple groin and buttock wound in consideration for debridement and reconstruction. She understands the risks and benefits of surgery and agrees to proceed. DETAILS OF THE OPERATION: The patient was brought to the operating room and laid in the lithotomy position in the operating room table. Her bilateral groin and buttock regions were prepped and draped in a sterile and usual fashion. We began first by using a #10 blade to debride the left groin wound which measured 8 x 2 cm. Once the wound was debrided down to healthy bleeding tissue, a superior fasciocutaneous flap was elevated with proximal and distal incisions made to fully mobilize the flap with perforators off of the deep inferior epigastric artery perfusing this flap. In a similar fashion, an inferior fasciocutaneous flap based off of perforators of the superficial femoral artery was elevated to allow for its closure of this left groin wound. The wound was then copiously irrigated with pulse lavage and the two flaps were brought together in opposition using #0 and 2-0 Vicryl sutures and 3-0 Monocryl was used to close the skin. We then turned our attention to the right groin wound. In a similar fashion, this wound was debrided using a #10 blade and electrocautery. We then elevated a superior fasciocutaneous flap based off of perforators of the deep inferior epigastric artery with proximal and distal incisions made to fully mobilize the flap and then an inferior fasciocutaneous flap was elevated based off of perforators of the superficial femoral artery with proximal and distal incisions made to fully mobilize the flap. Pulse lavage irrigation was used. Hemostasis was achieved. The flap was brought together in opposition using #0 and 2-0 Vicryl sutures and 3-0 Monocryl was used to close the skin with interrupted 2-0 Prolene vertical mattress type sutures. We then turned our attention to the right inner thigh wound where the k[place] were made as an elliptical type of incision. A #10 blade was used to debride the wound down to healthy bleeding tissue. A single medial thigh tissue flap had to be elevated to allow for a tension-free closure of this wound. After the wound was copiously irrigated with pulse lavage, the flap that was elevated based off of perforators of the superficial femoral artery was fully mobilized by proximal and distal incisions to fully mobilize it and was brought together to the opposing edge using #0 and 2-0 Vicryl sutures and a 2-0 Prolene was used to close the skin. In a similar fashion, the left inner thigh wound was debrided and also a medial thigh tissue flap was elevated based on perforators of the superficial femoral artery with proximal and distal incisions made to fully mobilize the flap. The wound was then irrigated with pulse lavage. Hemostasis was achieved and the wound was then closed with 2-0 Prolene sutures. Lastly there was two areas of perianal tissue that were debrided using a #10 blade and a complex closure was pursued following the debridement of the edges using 0, 2-0 Vicryl sutures and 3-0 chromic was used to close the skin. The patient tolerated the procedure well. There was no complications. Veronica Foley M.D. DR: Radha JOB#: [id number] CC:
[2016-09-20] MEDS: Heparin 5000 units/ml inj SUBQ SCH (20:51)
[2016-09-21] VITALS: BP 93/59
[2016-09-21] MEDS: ceFAZolin sod 1 GM in NS 55 ML IVPB SCH ×3 (02:41→18:46)
[2016-09-21 04:00] VITALS: BP 106/58
[2016-09-21] MEDS: PCA shift volume MISC SCH ×2 (07:18→19:00)
[2016-09-21 08:00] VITALS: BP 98/48
--- NOTE | 2016-09-21 08:04 | 48 Hour Post Anesthesia Eval ---
Post Anesthesia Evaluation Procedure: Revision and closure of bilateral groin wounds Date of Evaluation: Sep 21, 2016 Time of Evaluation: 08:03 Blood Pressure Systolic: 108 0: 72 Pulse Rate: 84 Respiratory Rate: 20 Temperature (Fahrenheit): 97.6 O2 Sat by Pulse Oximetry: 98 Airway: patent Nausea: No Vomiting: No Pain Intensity: 3 Hydration Status: adequate Cardiopulmonary Status: stable Mental Status/LOC: patient returned to baseline Follow-up Care/Observations: n/a Post-Anesthesia Complications: none Follow-up care needed: N/A KENTON CALL M.D. Sep 21, 2016 08:04
[2016-09-21 12:00] VITALS: BP 106/62
[2016-09-21] MEDS: Heparin 5000 units/ml inj SUBQ SCH ×2 (12:19→20:39)
[2016-09-21 16:00] VITALS: BP 106/63
--- NOTE | 2016-09-21 16:45 | General Progress Note ---
Progress Note Progress Note Pt seen and examined. She is doing well POD# 1 AVSS Continue abx and pain meds. MD DIALLO Cornell AMIR Sep 21, 2016 16:45
[2016-09-21] MEDS: PCA HYDROmorphone 1mg/ml 30 ML IV PRN (16:49)
--- NOTE | 2016-09-21 18:39 | General Progress Note ---
Assessment/Plan Problem List: (1) Groin abscess Assessment & Plan: - s/p I+D POD#1 - ContIV abx - encourage mobilization/ambulation - encourage incentive spirometry to optimize pulmonary hygiene - DVT/GI prophylaxis as appropriate - ctm CBC and hemodynamics - ctm electrolytes, adjust/replete prn - PT/OT/ST, if indicated - pain control, supportive care, bowel regimen A total of 31 mins of prolonged service time was spent with the patient in care coordination and counseling in addition to the face to face time for the visit. ICD Codes: L02.214 - Cutaneous abscess of groin SNOMED: [id number] Subjective Date patient seen: Sep 21, 2016 Time patient seen: 18:37 ROS Limited/Unobtainable: No Allergies: Coded Allergies: No Known Allergies (Unverified , 04/09/16) Subjective POD#1, no periop or psotop complications. No chest pain or dyspnea, no n/v, postop pain well controlled. Objective Last 24 Hour Vital Signs Date Time Temp Pulse Resp B/P Pulse Ox O2 Delivery O2 Flow Rate FiO2 09/21/16 16:09 20 09/21/16 16:00 99.1 53 16 106/63 98 Room Air 09/21/16 13:36 20 09/21/16 12:00 98.6 71 18 106/62 99 Room Air 09/21/16 08:04 84 20 98 09/21/16 08:00 97.9 76 18 98/48 96 Room Air 09/21/16 08:00 18 09/21/16 04:00 98.2 61 20 106/58 94 Room Air 09/21/16 04:00 18 09/21/16 00:00 18 09/21/16 00:00 97.9 59 19 93/59 97 Room Air 09/20/16 20:00 97.7 56 20 113/59 98 Room Air 09/20/16 20:00 18 Intake and Output 09/20/16 09/21/16 19:00 07:00 Intake Total 1355 ml 240 ml Output Total 250 ml 400 ml Balance 1105 ml -160 ml Intake Oral 300 ml 240 ml IV Total 1055 ml Output Urine Total 200 ml 400 ml Estimated Blood Loss 50 ml # Voids 1 1 Height (Feet): 5 Height (Inches): 9.00 Weight (Pounds): 300 Objective General: alert, cooperative, no distress, appears stated age Head: normocephalic, without obvious abnormality, atraumatic Eyes: conjunctivae/corneas clear. PERRL, EOM's intact Throat: lips, mucosa, and tongue normal. MMM Neck: supple, symmetrical, trachea midline, and no JVD Lungs: clear to auscultation bilaterally Heart: regular rate and rhythm, S1, S2 normal, no murmur, click, rub or gallop Abdomen: soft, non-tender, non-distended, bowel sounds normal; no masses or organomegaly Extremities: extremities normal, atraumatic, no cyanosis or edema Pulses: 2+ and symmetric Skin: skin color, texture, turgor normal; no rashes or lesions Neurologic: grossly normal, no focal deficits ENID DAVIS Sep 21, 2016 18:39
[2016-09-21 20:00] VITALS: BP 101/53
[2016-09-22] MEDS: ceFAZolin sod 1 GM in NS 55 ML IVPB SCH ×3 (02:22→18:22)
[2016-09-22 04:00] VITALS: BP 109/58
[2016-09-22] MEDS: PCA shift volume MISC SCH ×2 (07:11→19:12)
[2016-09-22 08:00] VITALS: BP 107/66
[2016-09-22] MEDS: Heparin 5000 units/ml inj SUBQ SCH ×2 (09:21→22:02)
[2016-09-22] MEDS ORDERED: Tubing IV Secondary IV ONE (09:59)
[2016-09-22 11:59] VITALS: BP 110/70
--- NOTE | 2016-09-22 12:11 | General Progress Note ---
Assessment/Plan Problem List: (1) Groin abscess Assessment & Plan: - s/p I+D POD#2 - Cont IV abx - encourage mobilization/ambulation - encourage incentive spirometry to optimize pulmonary hygiene - DVT/GI prophylaxis as appropriate - ctm CBC and hemodynamics - ctm electrolytes, adjust/replete prn - PT/OT/ST, if indicated - pain control, supportive care, bowel regimen A total of 31 mins of prolonged service time was spent with the patient in care coordination and counseling in addition to the face to face time for the visit. ICD Codes: L02.214 - Cutaneous abscess of groin SNOMED: [id number] Subjective Date patient seen: Sep 22, 2016 Time patient seen: 12:10 ROS Limited/Unobtainable: No Allergies: Coded Allergies: No Known Allergies (Unverified , 04/09/16) Subjective POD#2, no periop or psotop complications. No chest pain or dyspnea, no n/v, postop pain well controlled. Objective Last 24 Hour Vital Signs Date Time Temp Pulse Resp B/P Pulse Ox O2 Delivery O2 Flow Rate FiO2 09/22/16 11:59 97.8 64 18 110/70 98 Room Air 09/22/16 08:00 20 09/22/16 08:00 97.3 67 18 107/66 97 Room Air 09/22/16 04:00 98.1 63 18 109/58 97 Room Air 09/22/16 04:00 20 09/22/16 00:00 20 09/21/16 21:37 99.1 09/21/16 20:00 20 09/21/16 20:00 98.1 69 18 101/53 98 Room Air 09/21/16 16:09 20 09/21/16 16:00 99.1 53 16 106/63 98 Room Air 09/21/16 13:36 20 Intake and Output 09/21/16 09/22/16 18:59 06:59 Intake Total 655 ml 555 ml Output Total 1400 ml 700 ml Balance -745 ml -145 ml Intake Oral 600 ml 500 ml IV Total 55 ml 55 ml Output Urine Total 1400 ml 700 ml Height (Feet): 5 Height (Inches): 9.00 Weight (Pounds): 300 Objective General: alert, cooperative, no distress, appears stated age Head: normocephalic, without obvious abnormality, atraumatic Eyes: conjunctivae/corneas clear. PERRL, EOM's intact Throat: lips, mucosa, and tongue normal. MMM Neck: supple, symmetrical, trachea midline, and no JVD Lungs: clear to auscultation bilaterally Heart: regular rate and rhythm, S1, S2 normal, no murmur, click, rub or gallop Abdomen: soft, non-tender, non-distended, bowel sounds normal; no masses or organomegaly Extremities: extremities normal, atraumatic, no cyanosis or edema Pulses: 2+ and symmetric Skin: skin color, texture, turgor normal; no rashes or lesions Neurologic: grossly normal, no focal deficits ENID DAVIS Sep 22, 2016 12:11
[2016-09-22] MEDS ORDERED: PCA HYDROmorphone 1mg/ml 30 ML IV PRN (15:00)
[2016-09-22] MEDS ORDERED: Rate Change PCA 1 Each MISC PRN (15:00)
[2016-09-22 16:00] VITALS: BP 107/67
[2016-09-22] MEDS ORDERED: PCA shift volume MISC SCH (19:00)
[2016-09-22 20:00] VITALS: BP 103/51
[2016-09-23] MEDS: ceFAZolin sod 1 GM in NS 55 ML IVPB SCH ×2 (03:22→09:24)
[2016-09-23 04:00] VITALS: BP 113/59
[2016-09-23] MEDS: PCA shift volume MISC SCH (07:19)
[2016-09-23 08:00] VITALS: BP 103/50
[2016-09-23] MEDS: Heparin 5000 units/ml inj SUBQ SCH (09:32)
[2016-09-23 12:00] VITALS: BP 103/53
[2016-09-23] MEDS ORDERED: NS 550ML IV ONE (13:50)
--- NOTE | 2016-09-23 13:59 | Discharge Summary ---
Discharge Summary Hospital Course Date of Admission Sep 20, 2016 at 15:05 Date of Discharge September 23, 2016 Admitting Diagnosis Groin abscess Reason for Hospitalization: as above HPI Rosalia Griffin is a 41 year old female who was admitted on Sep 20, 2016 at 15 :05 for Bilateral Buttock Hydronosis Consultations Plastic Surgery Procedures See Operative reports Hospital Course 41 y/o female with groin abscess, s/p I+D and flap elevation surgeries without periop or postop complications. Once pain controlled and wounds were stable, she was dced home on percocet/zofran/doxy, and will f/u with Dr. Foley in a week postop Discharge Medications Continued Medications: Escitalopram Oxalate* (Lexapro*) 10 Mg Tablet 10 MG ORAL DAILY, TAB Discharge Condition Upon Discharge: stable Discharge Disposition Patient was discharged to home Discharge Diagnoses: (1) Inguinal abscess (2) Hidradenitis suppurativa (3) Depressed bipolar I disorder in full remission ENID DAVIS Sep 23, 2016 13:59
[2016-09-23] MEDS ORDERED: PERCOCET 5-3251 EACH ORAL ×3 (14:46→14:47)
[2016-09-23] MEDS ORDERED: ZOFRAN4 M3 ORAL (14:48)
[2016-09-23] MEDS ORDERED: DOXYCYCLINE MO100 M2 PO (14:49)
--- NOTE | 2016-09-27 23:20 | Diagnostic Imaging Report ---
APPROVED REPORT CPT Code: 48961 Present Symptoms Comments: Post op groin area dressings (BLE) Hx of Hidradenitis R/O DVT BILATERAL: Imaging reveals a patent deep venous system bilaterally. There is no evidence of thrombus within the superficial femoral, popliteal or tibial segments. The greater saphenous veins are also within normal limits. Doppler indicates normal spontaneous flow within these segments. The common femoral veins were not imaged.
== END 2016-09-23 16:40 | disposition home or self-care (01) | DRG 571 ==
LOC: SUR 07:21 → 3E 15:05 → SUR 09-21 12:27 → UNDOADMIN 09-21 12:40 → 3E 09-21 12:40
PROC: 0JXM0ZZ Transfer Left Upper Leg Subcutaneous Tissue and Fascia, Open Approach (ICD-10-PCS; principal; 2016-09-20 11:00)
PROC: 0JBB0ZZ Excision of Perineum Subcutaneous Tissue and Fascia, Open Approach (ICD-10-PCS; principal; 2016-09-20 11:00)
PROC: 0JBM0ZZ Excision of Left Upper Leg Subcutaneous Tissue and Fascia, Open Approach (ICD-10-PCS; principal; 2016-09-20 11:00)
PROC: 0JBL0ZZ Excision of Right Upper Leg Subcutaneous Tissue and Fascia, Open Approach (ICD-10-PCS; principal; 2016-09-20 11:00)
PROC: 0JXL0ZZ Transfer Right Upper Leg Subcutaneous Tissue and Fascia, Open Approach (ICD-10-PCS; principal; 2016-09-20 11:00)
PROC: 0JXF0ZZ Transfer Left Upper Arm Subcutaneous Tissue and Fascia, Open Approach (ICD-10-PCS; principal; 2016-09-20 11:00)
PROC: 0JX80ZZ Transfer Abdomen Subcutaneous Tissue and Fascia, Open Approach (ICD-10-PCS; principal; 2016-09-20 11:00)
PROC: 0JB80ZZ Excision of Abdomen Subcutaneous Tissue and Fascia, Open Approach (ICD-10-PCS; principal; 2016-09-20 11:00)
DX: L02.214 Cutaneous abscess of groin (principal); L02.416 Cutaneous abscess of left lower limb; L02.415 Cutaneous abscess of right lower limb; L73.2 Hidradenitis suppurativa
CPT/HCPCS: 36415; 80048; 85025; 85610; 85730; 93970; 94003; 94150; J2250; J2405; J2710; J2765

== ENCOUNTER 2016-11-01 09:36 | Inpatient (IN) | payer OTHER ==
[2016-11-01] VITALS (14 sets, daily range): BP systolic 89–130; BP diastolic 46–79
[~2016-11-01] VITALS: Ht 172.7 cm; Wt 136.1 kg
[~2016-11-01 09:36] MED LIST changes: +Bacitracin 50000 Units Vial ONE; +DOXYCYCLINE MO100 M2 PO; +Lidocaine 1% 10mg/ml/Epi 0.005mg/ml 30ml vial INJ ONE; +Lidocaine 2% 20mg/ml/Epi 0.005mg/ml 20ml vial ONE; +PERCOCET 5-3251 EACH ORAL; +Propofol 10mg/ml 20ml IV ONE; +Surgicel 4in x 8in TOPIC ONE; +ZOFRAN4 M3 ORAL
--- NOTE | 2016-11-01 09:47 | Anethesia Preoperative Eval ---
Anesthesia Pre-op PMH/ROS General Date of Evaluation: November 01, 2016 Time of Evaluation: 09:44 Anesthesiologist: Hussain ASA Score: ASA 3 Mallampati Score Class I : Soft palate, uvula, fauces, pillars visible Class II: Soft palate, uvula, fauces visible Class III: Soft palate, base of uvula visible Class IV: Only hard plate visible Mallampati Classification: Class II Surgeon: Alaina Diagnosis: Recurrent HS Surgical Procedure: Excision of pilonidal cyst Anesthesia History: none Family History: no anesthesia problems Allergies: Coded Allergies: No Known Allergies (Unverified , 04/09/16) Medications: see eMAR Past Medical History Cardiovascular: Denies: CAD, HTN, [place], arrhythmia, other, valve dz Pulmonary: Reports: JOSÉ ANTONIO, Denies: COPD, asthma, other Gastrointestinal/Genitourinary: Reports: GERD, Denies: CRI, ESRD, other Neurologic/Psychiatric: Reports: depression/anxiety, Denies: CVA, TIA, dementia, other Endocrine: Denies: DM, hypothyroidism, other, steroids HEENT: Denies: [place] (L), [place] (R), cataract (L), cataract (R), glaucoma, other Hematology/Immune: Reports: anemia - mild, Denies: DVT, bleeding disorder, other Musculoskeletal/Integumentary: Denies: DDD, DJD, OA, RA, edema, other Other: obesity PMH Narrative: as above PSxH Narrative: Multiple Sx for HS treatment Anesthesia Pre-op Phys. Exam Physician Exam Constitutional: NAD Neurologic: CN 2-12 intact Cardiovascular: RRR, no M/R/G Respiratory: CTA Gastrointestinal: other - obesity Airway Exam Mallampati Score: Class II MO: full Neck: Flexible ROM: full Teeth: intact Dentures: no lower, no upper Anesthesia Pre-op A/P Labs see chart Studies Pre-op Studies: EKG - NSR Risk Assessment & Plan Assessment: ASA 3 Plan: GA with ETT prone position Status Change Before Surgery: No Pre-Antibiotics Drug: Ancef 2 gr. Given Within 1 Hr of Incision: Yes Time Given: 10:30 KENTON CALL M.D. November 01, 2016 09:47
--- NOTE | 2016-11-01 09:56 | Pre-Procedure Note/Attestation ---
Pre-Procedure Note/Attestation Complete Prior to Procedure Planned Procedure: not applicable Procedure Narrative: Excision of pilonidal cyst with flap reconstruction Attestation I attest that I discussed the nature of the procedure; its benefits; risks and complications; and alternatives (and the risks and benefits of such alternatives ), prior to the procedure, with the patient (or the patient's legal sales representative livestock). I attest that, if there was a reasonable possibility of needing a blood transfusion, the patient (or the patient's legal sales representative livestock) was given the [facility] standardized written summary, pursuant to the [employer] Miguel Fili Blood Safety Act ([place] Health and Safety Code # 1645, as amended). I attest that I re-evaluated the patient just prior to the surgery and that there has been no change in the patient's H&P, except as documented below: MARÍA ELENA LANDRUM November 01, 2016 09:56
[2016-11-01] MEDS ORDERED: LR 1000ml ONE (10:00)
[2016-11-01] MEDS ORDERED: Succinylcholine 20mg/ml 10ml vial ONE (10:00)
[2016-11-01] MEDS ORDERED: Sterile Water Irrig 1000ml IRRIG ONE (10:00)
[2016-11-01] MEDS ORDERED: Metoclopramide 10mg/2ml Inj IVP PRN ×2 (10:00→11:30)
[2016-11-01] MEDS ORDERED: NS Irrig 1000ml ONE (10:00)
[2016-11-01] MEDS ORDERED: Ketorolac 30mg Inj ONE (10:00)
[2016-11-01] MEDS ORDERED: Midazolam 2mg/2ml Inj ONE (10:00)
[2016-11-01] MEDS ORDERED: Propofol 10mg/ml 20ml IV ONE (10:00)
[2016-11-01] MEDS ORDERED: Morphine Sulfate 10mg/ml Inj ONE (10:00)
[2016-11-01] MEDS ORDERED: Rate Change PCA 1 Each MISC PRN (10:00)
[2016-11-01] MEDS ORDERED: Glycopyrrolate 0.2mg/ml 1ml Vial ONE (10:00)
[2016-11-01] MEDS ORDERED: fentaNYL 100 mcg/2 mL IV ONE (10:00)
[2016-11-01] MEDS ORDERED: Neostigmine 1mg/ml 10ml Inj ONE (10:00)
[2016-11-01] MEDS ORDERED: Nimbex 2mg/ml Inj 10ML IVP ONE (10:00)
[2016-11-01] MEDS ORDERED: LR 1000ml 1,000 ML IVLG SCH (11:21)
[2016-11-01] MEDS ORDERED: fentaNYL 100 mcg/2 mL IV PRN (11:30)
[2016-11-01] MEDS ORDERED: Ketorolac 30mg Inj IV PRN (11:30)
[2016-11-01] MEDS ORDERED: Meperidine 25mg/0.5ml Inj IV PRN (11:30)
[2016-11-01] MEDS ORDERED: DiphenhydrAMINE 50mg/ml Inj IVP PRN (11:30)
[2016-11-01] MEDS ORDERED: Midazolam 2mg/2ml Inj IVP PRN (11:30)
[2016-11-01] MEDS ORDERED: Hydromorphone 0.5mg/0.5ml inj IVP PRN (11:30)
--- NOTE | 2016-11-01 11:49 | Operative Note - PDOC ---
Operative Note Operative Note Pre-op Diagnosis: Pilondal cyst and buttock wounds Post-op Diagnosis: same as pre-op Surgeon: Alaina General Manager Road Production: Harman Anesthesia: general Specimen: yes Complications: none Condition: stable Estimated Blood Loss: minimal Drains: HERSON Implant(s) used?: No MARÍA ELENA LANDRUM November 01, 2016 11:49
--- NOTE | 2016-11-01 12:14 | Immediate Post-Op Evaluation ---
Immediate Post-Op Evalulation Immediate Post-Op Evalulation Procedure: Excision of pilonidal cyst Date of Evaluation: November 01, 2016 Time of Evaluation: 12:12 IV Fluids: 1100 Blood Products: none Estimated Blood Loss: 50 Urinary Output: none Blood Pressure Systolic: 123 Blood Pressure Diastolic: 61 Pulse Rate: 76 Respiratory Rate: 22 O2 Sat by Pulse Oximetry: 99 Temperature (Fahrenheit): 97.4 Pain Score (1-10): 2 Nausea: No Vomiting: No Complications none Patient Status: reacts, patent, extubated, none Hydration Status: adequate KENTON CALL M.D. November 01, 2016 12:14
[2016-11-01] MEDS: PCA HYDROmorphone 1mg/ml 30 ML IV PRN (12:41)
[2016-11-01] MEDS ORDERED: Naloxone 0.4mg/ml Inj IV PRN (15:15)
[2016-11-01] MEDS ORDERED: Heparin 5000 units/ml inj SUBQ SCH (16:00)
--- NOTE | 2016-11-01 17:09 | History and Physical ---
History of Present Illness General Date patient seen: November 01, 2016 Time patient seen: 17:02 Present Illness HPI 41 y/o woman with hx of hidradenitis suppurativa presenting with pain from pilonidal cyst, admitted earlier today and underwent an uneventful I+D. No periop or postop complications. No chest pain or dyspnea, no n/v, postop pain well controlled. Allergies: Coded Allergies: No Known Allergies (Unverified , 04/09/16) Medication History Scheduled Escitalopram Oxalate* (Lexapro*), 10 MG ORAL DAILY, (Reported) Discontinued Medications Doxycycline Monohydrate (Doxycycline Monohydrate), 100 MG PO BID, (Reported) Discontinued Reason: Pt stopped taking med Ondansetron* (Zofran*), 4 MG ORAL Q6H PRN for Nausea & Vomiting, (Reported) Discontinued Reason: Pt stopped taking med Oxycodone/Acetaminophen 5-325* (Percocet 5-325 Mg Tablet*), 1 TAB ORAL Q4H PRN for For Pain, (Reported) Discontinued Reason: Pt stopped taking med Oxycodone/Acetaminophen 5-325* (Percocet 5-325 Mg Tablet*), 1 TAB ORAL Q6H PRN for For Pain, (Reported) Discontinued Reason: Pt stopped taking med Oxycodone/Acetaminophen 5-325* (Percocet 5-325 Mg Tablet*), 2 TAB ORAL Q6H PRN for For Pain, (Reported) Discontinued Reason: Pt stopped taking med Patient History History Provided By: Patient Healthcare decision maker N Resuscitation status Full Code Advanced Directive on File No Family History Family History: Patient reports no known family medical history. Social History Social History: (1) No significant social history Review of Systems Genitourinary: Reports: pain ROS Narrative CONSTITUTIONAL: No weight loss, fever, chills, weakness or fatigue. HEENT: Eyes: No visual loss, blurred vision, double vision or yellow sclerae. Ears, Nose, Throat: No hearing loss, sneezing, congestion, runny nose or sore throat. SKIN: No rash or itching. CARDIOVASCULAR: No chest pain, chest pressure or chest discomfort. No palpitations or edema. RESPIRATORY: No shortness of breath, cough or sputum. GASTROINTESTINAL: No anorexia, nausea, vomiting or diarrhea. No abdominal pain or blood. NEUROLOGICAL: No headache, dizziness, syncope, paralysis, ataxia, numbness or tingling in the extremities. No change in bowel or bladder control. MUSCULOSKELETAL: No muscle, back pain, joint pain or stiffness. HEMATOLOGIC: No anemia, bleeding or bruising. LYMPHATICS: No enlarged nodes. No history of splenectomy. PSYCHIATRIC: No history of depression or anxiety. ENDOCRINOLOGIC: No reports of sweating, cold or heat intolerance. No polyuria or polydipsia. ALLERGIES: No history of asthma, hives, eczema or rhinitis. Physical Exam Physical Exam Narrative General: alert, cooperative, no distress, appears stated age Head: normocephalic, without obvious abnormality, atraumatic Eyes: conjunctivae/corneas clear. PERRL, EOM's intact Throat: lips, mucosa, and tongue normal. MMM Neck: supple, symmetrical, trachea midline, and no JVD Lungs: clear to auscultation bilaterally Heart: regular rate and rhythm, S1, S2 normal, no murmur, click, rub or gallop Abdomen: soft, non-tender, non-distended, bowel sounds normal; no masses or organomegaly Extremities: extremities normal, atraumatic, no cyanosis or edema, +groin dressings Pulses: 2+ and symmetric Skin: skin color, texture, turgor normal; no rashes or lesions Neurologic: grossly normal, no focal deficits Last 24 Hour Vital Signs Date Time Temp Pulse Resp B/P Pulse Ox O2 Delivery O2 Flow Rate FiO2 11/01/16 16:00 18 11/01/16 14:45 97.0 64 20 89/46 99 Nasal Cannula 2.0 11/01/16 14:30 18 11/01/16 14:00 18 11/01/16 13:45 97.7 69 17 107/72 100 Nasal Cannula 2.0 11/01/16 13:30 20 11/01/16 13:25 98.0 50 20 113/53 100 Nasal Cannula 3.0 11/01/16 13:15 15 11/01/16 13:15 52 15 114/60 100 Nasal Cannula 3.0 11/01/16 13:11 98.0 11/01/16 13:05 56 15 117/66 100 Nasal Cannula 3.0 11/01/16 13:00 14 11/01/16 12:50 47 12 121/64 100 Nasal Cannula 3.0 5/25/17 12:41 17 11/01/16 12:40 45 13 129/61 100 Nasal Cannula 3.0 11/01/16 12:25 52 16 130/66 100 Simple Mask 8.0 11/01/16 12:15 52 12 127/69 100 Simple Mask 8.0 11/01/16 12:14 76 22 99 11/01/16 12:10 60 13 121/67 100 Simple Mask 8.0 11/01/16 12:06 97.3 74 15 123/71 100 Simple Mask 8.0 11/01/16 10:03 97.7 60 20 124/60 100 Room Air Height (Feet): 5 Height (Inches): 8.00 Weight (Pounds): 300 Medications Current Medications Medications (Trade) Dose Ordered Sig/Carl Route PRN Reason Start Time Stop Time Status Last Admin Dose Admin Docusate Sodium 100 mg 100 mg TWICE A DAY ORAL 11/01/16 18:00 12/01/16 17:59 Escitalopram Oxalate (Lexapro) 10 mg DAILY ORAL 11/01/16 16:00 12/01/16 15:59 11/01/16 16:31 Heparin Sodium (Porcine) (Heparin 5000 units/ml) 5,000 units Q8HR SUBQ 11/01/16 22:00 12/01/16 21:59 Hydromorphone HCl (Dilaudid) 2 mg Q3H PRN SUBQ Severe Pain (Pain Scale 7-10) 11/01/16 15:15 11/03/16 09:59 Hydromorphone HCl (Dilaudid) 2 mg Q4H PRN IVP Moderate Pain (Pain Scale 4-6) 11/01/16 15:15 11/03/16 09:59 Hydromorphone HCl (W[employer]ER Dilaudid) 30 ml @ 0 mls/hr Q24H PRN IV For Pain 11/01/16 10:00 11/03/16 09:59 11/01/16 12:41 Metoclopramide HCl (Reglan) 10 mg Q6H PRN IVP Nausea & Vomiting 11/01/16 10:00 12/01/16 09:59 Miscellaneous Medication (W[employer]ER Rate Change) 1 ea DAILY PRN MISC rate change 11/01/16 10:00 11/03/16 09:59 Miscellaneous Medication (W[employer]ER shift volume) 1 ea Q12HR@0700,1900 MISC 11/01/16 19:00 11/03/16 18:59 Naloxone HCl (Narcan) 0.1 mg PRN IV . 11/01/16 15:15 11/03/16 09:59 Ondansetron HCl (Zofran) 4 mg Q6H PRN IVP Nausea & Vomiting 11/01/16 10:00 12/01/16 09:59 Assessment/Plan Assessment/Plan Pilonidal cyst and buttock wounds - s/p I+D - encourage mobilization/ambulation - encourage incentive spirometry to optimize pulmonary hygiene - DVT/GI prophylaxis as appropriate - ctm CBC and hemodynamics - ctm electrolytes, adjust/replete prn - PT/OT/ST, if indicated - pain control, supportive care, bowel regimen - DC planning A total of 30 mins of additional time was spent beyond the time spent for face to face time ENID DAVIS November 01, 2016 17:09
--- NOTE | 2016-11-01 17:16 | Operative Note - Dictated ---
DATE OF OPERATION: 11/01/2016 PREOPERATIVE DIAGNOSES: 1. Pilonidal cyst. 2. Bilateral buttock infection. PREOPERATIVE DIAGNOSES: 1. Pilonidal cyst. 2. Bilateral buttock infection. PROCEDURES: 1. Excision of pilonidal cyst. 2. Elevation of a rhomboid flap for closure of pilonidal cyst. 3. Elevation of a posterior trunk fasciocutaneous flap for closure of pilonidal cyst wound. 4. Excision of left buttock infected tissue. 5. Elevation of a superior fasciocutaneous buttock flap for closure of left buttock wound. 6. Excision of right infected buttock tissue. 7. Elevation of a superior fasciocutaneous buttock flap for closure of right buttock wound. SURGEON: Veronica Foley M.D. BLASTING GANG MINER: Raisa Hammer M.D. ANESTHESIA: General. COMPLICATIONS: None. ESTIMATED BLOOD LOSS: Minimal. SPECIMEN: Bilateral buttock and pilonidal tissue. DISPOSITION: Stable to the recovery room. INDICATIONS FOR SURGERY: This is a 41-year-old female, well known to me, who was previously undergone groin reconstruction, who now presents with the infected pilonidal as well as buttock tissue, which requires excision and reconstruction. She understands the risks and benefits of surgery and agrees to proceed. DETAILS OF THE OPERATION: The patient was brought to the operating room and laid in the prone position on the operating table. After induction of anesthesia, her lower back and buttock regions were prepped and draped in a sterile and usual fashion. We first began by delineating within the rhomboid shaped, the area of excision of the pilonidal tissue and a corresponding rhomboid flap was also designed with 2.5 centimeter lengths. The infected buttock tissue wounds were also delineated on left and right side with a elliptical type of incision to be made. We first began by using a #10 blade to excise the rhomboid shaped pilonidal tissue all the way down to the presacral fascia. Once this was done, the rhomboid flap that was designed was cut using a #15 blade with mobilization of the flap fully using electrocautery. In addition, it was noted to be able to close the wound, a left-sided posterior trunk flap had to be elevated at the fasciocutaneous level with perforators off of the superior gluteal artery and lumbar artery's perfusing this flap. With this flap fully mobilized, the rhomboid flap fully mobilized and it was noted that the wound could be closed without tension. Prior to closure, however, the wound was copiously irrigated with pulse lavage. We then turned our attention to the buttock wounds. The left buttock tissue was excised with an elliptical type of incision. The defect that altered was 5 x 4 cm and was not amenable to primary closure. As such, a superior buttock flap based off of perforators of the inferior gluteal artery was elevated using proximal distal incisions to fully mobilize the flap. This wound was then copiously irrigated with pulse lavage and hemostasis was achieved. We then turned our attention to the contralateral right buttock tissue that was infected and required excision. A #15 blade was used to make an elliptical incision around this tissue and once the tissue was radically excised, the defect that remained was 4 x 3 centimeters and was not amenable to primary closure and a corresponding superior fasciocutaneous flap based off of perforators of the inferior gluteal artery was also elevated and this was done with electrocautery with proximal and distal incisions made to fully mobilize the flap. With all three wounds open and the flaps mobilized, all wounds copiously irrigated once again, we then began to close the buttock tissues with flap mobilization into the opposing edges using #0 and 2-0 Vicryl sutures and 2-0 Prolene was used to close the skin for both the buttock wounds and the rhomboid flap was then inset into the defect with #0 and 2-0 Vicryl sutures along with the posterior trunk flap that was elevated brought to the posing medial edge to fully close the wound using #0 and 2-0 Vicryl sutures and 2-0 Prolene was used to close the skin. This completed the procedure. The patient tolerated the procedure well. There is no complications. Veronica Foley M.D. DR: EMIL JOB#: [id number] CC:
[2016-11-01] MEDS: Docusate 100mg cap ORAL SCH (17:24)
[2016-11-01] MEDS: PCA shift volume MISC SCH (19:29)
[2016-11-01] MEDS: Heparin 5000 units/ml inj SUBQ SCH (22:00)
[2016-11-02] VITALS: BP 107/56
[2016-11-02 04:00] VITALS: BP 114/59
[2016-11-02] MEDS: Heparin 5000 units/ml inj SUBQ SCH ×3 (06:44→22:37)
[2016-11-02] MEDS: PCA shift volume MISC SCH ×2 (07:17→19:09)
[2016-11-02 08:00] VITALS: BP 112/59
[2016-11-02] MEDS: Docusate 100mg cap ORAL SCH ×2 (08:22→17:16)
[2016-11-02] MEDS: ceFAZolin sod 1 GM in D5W 55 ML IVPB SCH ×2 (08:27→16:42)
--- NOTE | 2016-11-02 10:45 | 48 Hour Post Anesthesia Eval ---
Post Anesthesia Evaluation Procedure: Excision of pilonidal cyst Date of Evaluation: November 02, 2016 Time of Evaluation: 06:00 Blood Pressure Systolic: 114 0: 59 Pulse Rate: 69 Respiratory Rate: 16 Temperature (Fahrenheit): 98.2 O2 Sat by Pulse Oximetry: 98 Airway: patent Nausea: No Vomiting: No Pain Intensity: 2 Hydration Status: adequate Cardiopulmonary Status: at baseline Mental Status/LOC: patient returned to baseline Post-Anesthesia Complications: 0 Follow-up care needed: N/A - further care as per primary team ZHANG SALDIVAR M.D. November 02, 2016 10:45
[2016-11-02 12:00] VITALS: BP 111/67
--- NOTE | 2016-11-02 12:07 | General Progress Note ---
Assessment/Plan Problem List: (1) Groin abscess Assessment & Plan: s/p I+D pilonidal cyst POD#1 - encourage mobilization/ambulation - encourage incentive spirometry to optimize pulmonary hygiene - DVT/GI prophylaxis as appropriate - ctm CBC and hemodynamics - ctm electrolytes, adjust/replete prn - PT/OT/ST, if indicated - pain control, supportive care, bowel regimen - DC planning A total of 30 mins of additional time was spent beyond the time spent for face to face time ICD Codes: L02.214 - Cutaneous abscess of groin SNOMED: 93014285 Subjective Date patient seen: November 02, 2016 Time patient seen: 12:05 ROS Limited/Unobtainable: No Allergies: Coded Allergies: No Known Allergies (Unverified , 04/09/16) Subjective s/p surgery POD#1, no periop or postop complications. No chest pain or dyspnea, no n/v. Postop pain well controlled. Objective Last 24 Hour Vital Signs Date Time Temp Pulse Resp B/P Pulse Ox O2 Delivery O2 Flow Rate FiO2 11/02/16 11:10 98.2 11/02/16 10:45 69 16 98 11/02/16 08:00 98.2 64 20 112/59 98 Room Air 11/02/16 08:00 18 11/02/16 04:00 98.2 69 18 114/59 98 Room Air 11/02/16 04:00 16 11/02/16 00:00 16 11/02/16 00:00 97.9 65 17 107/56 96 Room Air 11/01/16 20:00 18 11/01/16 20:00 98.1 60 18 113/57 99 Room Air 11/01/16 16:00 98.0 68 20 118/79 99 Room Air 11/01/16 16:00 18 11/01/16 14:45 97.0 64 20 89/46 99 Nasal Cannula 2.0 11/01/16 14:30 18 11/01/16 14:00 18 11/01/16 13:45 97.7 69 17 107/72 100 Nasal Cannula 2.0 11/01/16 13:30 20 11/01/16 13:25 98.0 50 20 113/53 100 Nasal Cannula 3.0 11/01/16 13:15 15 11/01/16 13:15 52 15 114/60 100 Nasal Cannula 3.0 11/01/16 13:11 98.0 11/01/16 13:05 56 15 117/66 100 Nasal Cannula 3.0 11/01/16 13:00 14 11/01/16 12:50 47 12 121/64 100 Nasal Cannula 3.0 11/01/16 12:41 17 11/01/16 12:40 45 13 129/61 100 Nasal Cannula 3.0 11/01/16 12:25 52 16 130/66 100 Simple Mask 8.0 11/01/16 12:15 52 12 127/69 100 Simple Mask 8.0 11/01/16 12:14 76 22 99 11/01/16 12:10 60 13 121/67 100 Simple Mask 8.0 11/01/16 12:06 97.3 74 15 123/71 100 Simple Mask 8.0 Intake and Output 11/01/16 11/02/16 19:00 07:00 Intake Total 1740 ml 400 ml Output Total 350 ml 400 ml Balance 1390 ml 0 ml Intake Oral 440 ml 400 ml IV Total 1300 ml Output Urine Total 300 ml 400 ml Drainage Total 0 ml 0 ml Estimated Blood Loss 50 ml # Voids 1 2 # Bowel Movements 1 Height (Feet): 5 Height (Inches): 8.00 Weight (Pounds): 300 Objective General: alert, cooperative, no distress, appears stated age Head: normocephalic, without obvious abnormality, atraumatic Eyes: conjunctivae/corneas clear. PERRL, EOM's intact Throat: lips, mucosa, and tongue normal. MMM Neck: supple, symmetrical, trachea midline, and no JVD Lungs: clear to auscultation bilaterally Heart: regular rate and rhythm, S1, S2 normal, no murmur, click, rub or gallop Abdomen: soft, non-tender, non-distended, bowel sounds normal; no masses or organomegaly Extremities: extremities normal, atraumatic, no cyanosis or edema Pulses: 2+ and symmetric Skin: skin color, texture, turgor normal; no rashes or lesions Neurologic: grossly normal, no focal deficits ENID DAVIS November 02, 2016 12:07
[2016-11-02] MEDS: PCA HYDROmorphone 1mg/ml 30 ML IV PRN (13:13)
[2016-11-02 16:00] VITALS: BP 119/68
[2016-11-02 20:00] VITALS: BP 104/63
[2016-11-03] VITALS: BP 109/59
[2016-11-03] MEDS: ceFAZolin sod 1 GM in D5W 55 ML IVPB SCH ×3 (00:23→17:02)
[2016-11-03 04:00] VITALS: BP 113/61
[2016-11-03] MEDS: Heparin 5000 units/ml inj SUBQ SCH ×3 (06:43→22:14)
[2016-11-03] MEDS ORDERED: Rate Change PCA 1 Each MISC PRN (07:15)
[2016-11-03 07:45] LABS: BASOPHILS % (AUTO) 0.8 % (0.0-2.0); EOSINOPHILS % (AUTO) 3.5 % (0.0-3.0); LYMPHOCYTES % (AUTO) 33.7 % (20.0-45.0); MEAN CORPUSCULAR HEMOGLOBIN 23.9 PG (27.0-31.0); MEAN CORPUSCULAR HGB CONC 31.1 G/DL (32.0-36.0); MEAN CORPUSCULAR VOLUME 77 FL (80-99); MEAN PLATELET VOLUME 7.6 FL (6.5-10.1); MONOCYTES % (AUTO) 9.2 % (1.0-10.0); NEUTROPHILS % (AUTO) 52.7 % (45.0-75.0); PLATELET COUNT 230 K/UL (150-450); RED BLOOD COUNT 3.74 M/UL (4.20-5.40); RED CELL DISTRIBUTION WIDTH 15.4 % (11.6-14.8); WHITE BLOOD COUNT 5.5 K/UL (4.8-10.8)
[2016-11-03 08:00] VITALS: BP 108/51
[2016-11-03 08:03] LABS: ANION GAP 11 (5-15); CALCIUM 8.5 mg/dL (8.6-10.2); CARBON DIOXIDE 27 mEQ/L (20-30); CHLORIDE 101 mEQ/L (98-107); CREATININE 0.5 mg/dL (0.5-0.9); GLOMERULAR FILTRATION RATE > 60 mL/min (>60); HEMOLYSIS 0; POTASSIUM 3.7 mEQ/L (3.4-4.9); SODIUM 139 mEQ/L (135-145)
[2016-11-03] MEDS: Docusate 100mg cap ORAL SCH ×2 (08:27→17:02)
[2016-11-03] MEDS ORDERED: PCA HYDROmorphone 1mg/ml 30 ML IV PRN (10:00)
--- NOTE | 2016-11-03 10:21 | General Progress Note ---
Assessment/Plan Problem List: (1) Groin abscess Assessment & Plan: s/p I+D pilonidal cyst POD#2 - encourage mobilization/ambulation - encourage incentive spirometry to optimize pulmonary hygiene - DVT/GI prophylaxis as appropriate - ctm CBC and hemodynamics - ctm electrolytes, adjust/replete prn - PT/OT/ST, if indicated - pain control, supportive care, bowel regimen - DC planning A total of 30 mins of additional time was spent beyond the time spent for face to face time ICD Codes: L02.214 - Cutaneous abscess of groin SNOMED: 94278727 Subjective Date patient seen: November 03, 2016 Time patient seen: 10:21 ROS Limited/Unobtainable: No Allergies: Coded Allergies: No Known Allergies (Unverified , 04/09/16) Subjective s/p surgery POD#2, no periop or postop complications. No chest pain or dyspnea, no n/v. Postop pain well controlled. Objective Last 24 Hour Vital Signs Date Time Temp Pulse Resp B/P Pulse Ox O2 Delivery O2 Flow Rate FiO2 11/03/16 08:00 98.1 70 18 108/51 99 Room Air 11/03/16 07:59 19 11/03/16 04:00 16 11/03/16 04:00 97.8 72 19 113/61 97 Room Air 11/03/16 00:00 98.1 74 18 109/59 99 Room Air 11/03/16 00:00 18 11/02/16 20:00 97.9 77 18 104/63 100 Room Air 11/02/16 20:00 18 11/02/16 16:00 98.6 76 20 119/68 99 Room Air 11/02/16 16:00 18 11/02/16 13:43 98.2 11/02/16 13:13 18 11/02/16 13:12 18 11/02/16 12:00 99.1 66 20 111/67 98 Room Air 11/02/16 12:00 18 11/02/16 11:10 98.2 11/02/16 10:45 69 16 98 Intake and Output 11/02/16 11/03/16 19:00 07:00 Intake Total 1180 ml 240 ml Output Total 0 ml 1 ml Balance 1180 ml 239 ml Intake Oral 1070 ml 240 ml IV Total 110 ml Drainage Total 0 ml 1 ml # Voids 1 3 # Bowel Movements 2 Laboratory Tests 11/03/16 06:07: White Blood Count 5.5, Red Blood Count 3.74L, Hemoglobin 8.9L, Hematocrit 28.8L , Mean Corpuscular Volume 77L, Mean Corpuscular Hemoglobin 23.9L, Mean Corpuscular Hemoglobin Concent 31.1L, Red Cell Distribution Width 15.4H, Platelet Count 230, Mean Platelet Volume 7.6, Neutrophils (%) (Auto) 52.7, Lymphocytes (%) (Auto) 33.7, Monocytes (%) (Auto) 9.2, Eosinophils (%) (Auto) 3.5H, Basophils (%) (Auto) 0.8, Sodium Level 139, Potassium Level 3.7, Chloride Level 101, Carbon Dioxide Level 27, Anion Gap 11, Blood Urea Nitrogen 8, Creatinine 0.5, Estimat Glomerular Filtration Rate > 60, Glucose Level 92, Calcium Level 8.5L Height (Feet): 5 Height (Inches): 8.00 Weight (Pounds): 300 Objective General: alert, cooperative, no distress, appears stated age Head: normocephalic, without obvious abnormality, atraumatic Eyes: conjunctivae/corneas clear. PERRL, EOM's intact Throat: lips, mucosa, and tongue normal. MMM Neck: supple, symmetrical, trachea midline, and no JVD Lungs: clear to auscultation bilaterally Heart: regular rate and rhythm, S1, S2 normal, no murmur, click, rub or gallop Abdomen: soft, non-tender, non-distended, bowel sounds normal; no masses or organomegaly Extremities: extremities normal, atraumatic, no cyanosis or edema Pulses: 2+ and symmetric Skin: skin color, texture, turgor normal; no rashes or lesions Neurologic: grossly normal, no focal deficits ENID DAVIS November 03, 2016 10:21
[2016-11-03 12:00] VITALS: BP 101/58
[2016-11-03 16:00] VITALS: BP 107/58
[2016-11-03] MEDS: PCA shift volume MISC SCH (19:18)
[2016-11-03 20:00] VITALS: BP 107/59
[2016-11-04] VITALS: BP 113/67
[2016-11-04 04:00] VITALS: BP 121/71
[2016-11-04] MEDS: Heparin 5000 units/ml inj SUBQ SCH ×2 (05:52→14:35)
[2016-11-04] MEDS: PCA shift volume MISC SCH (07:12)
[2016-11-04 08:00] VITALS: BP 107/50
[2016-11-04] MEDS: ceFAZolin sod 1 GM in D5W 55 ML IVPB SCH ×3 (09:06)
[2016-11-04] MEDS: Docusate 100mg cap ORAL SCH ×2 (09:06→18:00)
[2016-11-04 12:00] VITALS: BP 107/50
[2016-11-04 16:00] VITALS: BP 107/69
[2016-11-04] MEDS ORDERED: LR 1000ml ONE (17:16)
--- NOTE | 2016-11-04 21:03 | Discharge Summary ---
Discharge Summary Hospital Course Date of Admission November 01, 2016 at 14:01 Date of Discharge November 04, 2016 at 19:43 Admitting Diagnosis pilonidal cyst Reason for Hospitalization: as above HPI Rosalia Griffin is a 41 year old female who was admitted on November 01, 2016 at 14 :01 for Pilonidal Cyst Consultations Surgery Procedures See operative report Hospital Course 41 y/o female with pilonidal cyst, s/p I+D without any periop or postop complications. No chest pain or dyspnea, once pain was controlled and able to ambulate and wound was cleared, pt was dced home with outpt surgery followup in 1-2 weeks and prescriptions for pain meds and doxycycline. Discharge Medications Continued Medications: Escitalopram Oxalate* (Lexapro*) 10 Mg Tablet 10 MG ORAL DAILY, TAB Discharge Condition Upon Discharge: stable Discharge Disposition Patient was discharged to Home (01) Discharge Diagnoses: (1) Pilonidal abscess ENID DAVIS November 04, 2016 21:03
== END 2016-11-04 19:43 | disposition home or self-care (01) | DRG 578 ==
LOC: SUR 09:36 → 3E 14:01
PROC: 0JX90ZC Transfer Buttock Subcutaneous Tissue and Fascia with Skin, Subcutaneous Tissue and Fascia, Open Approach (ICD-10-PCS; principal; 2016-11-01 10:00)
PROC: 0JB90ZZ Excision of Buttock Subcutaneous Tissue and Fascia, Open Approach (ICD-10-PCS; principal; 2016-11-01 10:00)
DX: L05.91 Pilonidal cyst without abscess (principal)
CPT/HCPCS: 36415; 80048; 85025; 87081; 94003; 94150; J2250; J2405; J2710; J2765

== ENCOUNTER 2016-11-15 14:09 | Inpatient (IN) | payer OTHER ==
[~2016-11-15] VITALS: Ht 170.2 cm; Wt 135.6 kg
[~2016-11-15 14:09] MED LIST changes: -Bacitracin 50000 Units Vial ONE; -Lidocaine 1% 10mg/ml/Epi 0.005mg/ml 30ml vial INJ ONE; -Lidocaine 2% 20mg/ml/Epi 0.005mg/ml 20ml vial ONE; -Propofol 10mg/ml 20ml IV ONE; -Surgicel 4in x 8in TOPIC ONE
[2016-11-15 14:35] VITALS: BP 111/69
[2016-11-15] MEDS ORDERED: Unasyn 3gm Inj IVPB ONE (15:00)
[2016-11-15] MEDS ORDERED: Ampicillin/Sulbactam Sod 3 GM in NS 110 ML IVPB ONE (15:30)
[2016-11-15 15:38] LABS: BASOPHILS % (AUTO) 1.2 % (0.0-2.0); LYMPHOCYTES % (AUTO) 34.6 % (20.0-45.0); MEAN CORPUSCULAR HEMOGLOBIN 23.4 PG (27.0-31.0); MEAN CORPUSCULAR HGB CONC 30.3 G/DL (32.0-36.0); MEAN CORPUSCULAR VOLUME 77 FL (80-99); MEAN PLATELET VOLUME 7.5 FL (6.5-10.1); MONOCYTES % (AUTO) 6.1 % (1.0-10.0); NEUTROPHILS % (AUTO) 57.2 % (45.0-75.0); PLATELET COUNT 334 K/UL (150-450); RED CELL DISTRIBUTION WIDTH 14.8 % (11.6-14.8); WHITE BLOOD COUNT 5.9 K/UL (4.8-10.8)
--- NOTE | 2016-11-15 15:49 | Emergency Room Report ---
History of Present Illness General Chief Complaint: Wound Recheck/Suture Removal Source: Patient Present Illness HPI 41-year-old female presents to ED for evaluation. Patient states that she recently had surgery for pilonidal cyst here at [place]. Patient was subsequently discharged and states that a few days later she noticed drainage and opening of the surgical site. She went to his surgeon today for followup. He packed wound and referred patient to ER for evaluation. Patient denies any pain. Denies any fevers or chills. No other aggravating relieving factors. Denies any other associated symptoms Allergies: Coded Allergies: No Known Allergies (Unverified , 04/09/16) Patient History Past Surgical History: none Pertinent Family History: none Social History: Denies: alcohol use, drug use, smoking Last Menstrual Period: 11/10/16 Now: No Immunizations: UTD Reviewed Nursing Documentation: PMH: Agreed, PSxH: Agreed Nursing Documentation-PMH Hx Cardiac Problems: No Hx Cancer: No Hx Gastrointestinal Problems: No Hx Neurological Problems: No Review of Systems All Other Systems: negative except mentioned in HPI Physical Exam Vital Signs Date Time Temp Pulse Resp B/P Pulse Ox O2 Delivery O2 Flow Rate FiO2 11/15/16 14:19 97.7 84 14 111/69 100 Room Air Sp02 EP Interpretation: reviewed, normal General Appearance: no apparent distress, alert, GCS 15, non-toxic Head: normocephalic, atraumatic Eyes: bilateral eye PERRL, bilateral eye normal inspection ENT: hearing grossly normal, normal pharynx, no angioedema, normal voice Neck: full range of motion, supple/symm/no masses Respiratory: chest non-tender, lungs clear, normal breath sounds, speaking full sentences Cardiovascular #1: regular rate, rhythm, no edema Cardiovascular #2: 2+ carotid (R), 2+ carotid (L), 2+ radial (R), 2+ radial (L) , 2+ dorsalis pedis (R), 2+ dorsalis pedis (L) Gastrointestinal: normal bowel sounds, non tender, soft, non-distended, no guarding, no rebound Rectal: deferred Genitourinary: normal inspection, no CVA tenderness Musculoskeletal: back normal, gait/station normal, normal range of motion, non- tender Neurologic: alert, oriented x3, responsive, motor strength/tone normal, sensory intact, speech normal Psychiatric: judgement/insight normal, memory normal, mood/affect normal, no suicidal/homicidal ideation Reflexes: 3+ bicep (R), 3+ bicep (L), 3+ tricep (R), 3+ tricep (L), 3+ knee (R) , 3+ knee (L) Skin: other - surgical wound to lower back. open. drainage noted Lymphatic: no adenopathy Medical Decision Making Diagnostic Impression: Primary Impression: Dehiscence of surgical wound Qualified Codes: T81.31XA - Disruption of external operation (surgical) wound , not elsewhere classified, initial encounter Additional Impression: Pilonidal abscess ER Course Hospital Course 41-year-old female presents to ED with drainage from a surgical wound. Status post pilonidal cyst drainage Differential diagnoses include: Cellulitis, surgical site infection, dehiscence Clinical course Patient placed on stretcher. After initial history and physical I ordered labs , blood Cx, IVFs labs reviewed - no leukocytosis, Hb/Hct stable, no electrolyte abnormalities. There is dehiscence of the surgical wound. Will require IV antibiotics and debridement Dr Landrum aware that patient will be admitted antibiotics given. Case discussed with Dr Murray and he agreed to accept the patient to his service for further care and support Diagnosis - dehiscence of surgical wound, pilonidal abscess Patient admitted to floor in serious condition Labs Test 11/15/16 15:00 White Blood Count 5.9 K/UL (4.8-10.8) Red Blood Count 4.40 M/UL (4.20-5.40) Hemoglobin 10.3 G/DL (12.0-16.0) Hematocrit 34.0 % (37.0-47.0) Mean Corpuscular Volume 77 FL (80-99) Mean Corpuscular Hemoglobin 23.4 PG (27.0-31.0) Mean Corpuscular Hemoglobin Concent 30.3 G/DL (32.0-36.0) Red Cell Distribution Width 14.8 % (11.6-14.8) Platelet Count 334 K/UL (150-450) Mean Platelet Volume 7.5 FL (6.5-10.1) Neutrophils (%) (Auto) 57.2 % (45.0-75.0) Lymphocytes (%) (Auto) 34.6 % (20.0-45.0) Monocytes (%) (Auto) 6.1 % (1.0-10.0) Eosinophils (%) (Auto) 1.0 % (0.0-3.0) Basophils (%) (Auto) 1.2 % (0.0-2.0) Sodium Level 139 mEQ/L (135-145) Potassium Level 3.8 mEQ/L (3.4-4.9) Chloride Level 100 mEQ/L (98-107) Carbon Dioxide Level 25 mEQ/L (20-30) Anion Gap 14 (5-15) Blood Urea Nitrogen 10 mg/dL (7-23) Creatinine 0.7 mg/dL (0.5-0.9) Estimat Glomerular Filtration Rate > 60 mL/min (>60) Glucose Level 67 mg/dL (74-106) Lactic Acid Level 2.20 mmol/L (0.66-2.22) Calcium Level 9.0 mg/dL (8.6-10.2) Total Bilirubin 0.3 mg/dL (0.0-1.2) Aspartate Amino Transf (AST/SGOT) 17 U/L (5-40) Alanine Aminotransferase (ALT/SGPT) 10 U/L (3-33) Alkaline Phosphatase 76 U/L (35-104) Total Protein 7.5 g/dL (6.6-8.7) Albumin 4.1 g/dL (3.5-5.2) Globulin 3.4 g/dL Albumin/Globulin Ratio 1.2 (1.0-2.7) Last Vital Signs Date Time Temp Pulse Resp B/P Pulse Ox O2 Delivery O2 Flow Rate FiO2 11/15/16 14:35 97.7 14 111/69 100 Room Air 11/15/16 14:19 84 Status: improved Disposition: ADMITTED INPATIENT Condition: Serious Referrals: MARÍA ELENA LANDRUM (PCP) DILCIA HEALY M.D. Nov 15, 2016 15:49
[2016-11-15 15:50] LABS: ALANINE AMINOTRANSFERASE 10 U/L (3-33); ALBUMIN/GLOBULIN RATIO 1.2 (1.0-2.7); ANION GAP 14 (5-15); ASPARTATE AMINO TRANSFERASE 17 U/L (5-40); CARBON DIOXIDE 25 mEQ/L (20-30); CHLORIDE 100 mEQ/L (98-107); CREATININE 0.7 mg/dL (0.5-0.9); GLOMERULAR FILTRATION RATE > 60 mL/min (>60); HEMOLYSIS 13; POTASSIUM 3.8 mEQ/L (3.4-4.9); SODIUM 139 mEQ/L (135-145); TOTAL PROTEIN 7.5 g/dL (6.6-8.7)
[2016-11-15 15:54] LABS: REFLEX LACTIC ACID YES OR NO YES
--- NOTE | 2016-11-15 16:17 | Emergency Room Report ---
Physical Exam Vital Signs Date Time Temp Pulse Resp B/P Pulse Ox O2 Delivery O2 Flow Rate FiO2 11/15/16 14:19 97.7 84 14 111/69 100 Room Air Medical Decision Making Diagnostic Impression: Primary Impression: Dehiscence of surgical wound Qualified Codes: T81.31XA - Disruption of external operation (surgical) wound , not elsewhere classified, initial encounter Additional Impression: Pilonidal abscess EKG Diagnostic Results Rate: bradycardiac Rhythm: NSR ST Segments: no acute changes ASA given to the pt in ED: No Rhythm Strip Diag. Results EP Interpretation: yes Rhythm: NSR, no PVC's, no ectopy Last Vital Signs Date Time Temp Pulse Resp B/P Pulse Ox O2 Delivery O2 Flow Rate FiO2 11/15/16 14:35 97.7 14 111/69 100 Room Air 11/15/16 14:19 84 Status: improved Disposition: ADMITTED INPATIENT Condition: Serious Referrals: MARÍA ELENA LANDRUM (PCP) DILCIA HEALY M.D. Nov 15, 2016 16:17
[2016-11-15 16:21] LABS: APPEARANCE,URINE CLEAR; KETONES,URINE NEGATIVE (NEGATIVE); LEUKOCYTE ESTERASE ,URINE NEGATIVE (NEGATIVE); NITRITE,URINE NEGATIVE (NEGATIVE); PH,URINE 6 (4.5-8.0); PROTEIN,URINE NEGATIVE (NEGATIVE); UROBILINOGEN,URINE NORMAL MG/DL (0.0-1.0)
[2016-11-15] MEDS ORDERED: ZOFRAN ODT4 MG ORAL (16:44)
[2016-11-15] MEDS ORDERED: PERCOCET 5-3251 EACH ORAL (16:44)
[2016-11-15] MEDS ORDERED: LEXAPRO10 MG ORAL (16:44)
[2016-11-15] MEDS ORDERED: Miralax 17gm pkt ORAL PRN (17:00)
[2016-11-15] MEDS ORDERED: Milk of Magnesia 30ml Ud ORAL PRN (17:00)
[2016-11-15] MEDS ORDERED: Morphine Sulfate 4mg/ml Inj IVP PRN (17:00)
[2016-11-15] MEDS ORDERED: Mylanta II UD 30ml ORAL PRN (17:00)
--- NOTE | 2016-11-15 17:57 | History and Physical ---
History of Present Illness General Date patient seen: Nov 15, 2016 Time patient seen: 17:51 Reason for Hospitalization: Wound Recheck/Suture Removal Present Illness HPI 41 y/o female with hx of previous surgery recently dced home, 2 days post DC started to notice her surgical wound was opening up. She tried wet to dry dressings for a few days but that did not work. She called her surgeon who told her to come to the ED to be evaluated. No fevers/chills, pain controlled here in the ED. Allergies: Coded Allergies: No Known Allergies (Unverified , 04/09/16) Medication History Scheduled Escitalopram Oxalate* (Lexapro*), 10 MG ORAL DAILY, (Reported) Escitalopram Oxalate* (Lexapro*), 10 MG ORAL DAILY, (Reported) Scheduled PRN Ondansetron Odt* (Zofran Odt*), 4 MG ORAL Q6H PRN for Nausea & Vomiting, ( Reported) Oxycodone/Acetaminophen 5-325* (Percocet 5-325 Mg Tablet*), 1 TAB ORAL Q4H PRN for For Pain, (Reported) Patient History History Provided By: Patient Healthcare decision maker Resuscitation status Advanced Directive on File Past Medical/Surgical History Past Medical/Surgical History: (1) Pilonidal abscess (2) Dehiscence of surgical wound (3) Depressed bipolar I disorder in full remission (4) Depression Family History Family History: Patient reports no known family medical history. Social History Social History: (1) No significant social history Review of Systems ROS Narrative CONSTITUTIONAL: No weight loss, fever, chills, weakness or fatigue. HEENT: Eyes: No visual loss, blurred vision, double vision or yellow sclerae. Ears, Nose, Throat: No hearing loss, sneezing, congestion, runny nose or sore throat. SKIN: No rash or itching. CARDIOVASCULAR: No chest pain, chest pressure or chest discomfort. No palpitations or edema. RESPIRATORY: No shortness of breath, cough or sputum. GASTROINTESTINAL: No anorexia, nausea, vomiting or diarrhea. No abdominal pain or blood. NEUROLOGICAL: No headache, dizziness, syncope, paralysis, ataxia, numbness or tingling in the extremities. No change in bowel or bladder control. MUSCULOSKELETAL: wound dehiscence noted, dressings noted HEMATOLOGIC: No anemia, bleeding or bruising. LYMPHATICS: No enlarged nodes. No history of splenectomy. PSYCHIATRIC: No history of depression or anxiety. ENDOCRINOLOGIC: No reports of sweating, cold or heat intolerance. No polyuria or polydipsia. ALLERGIES: No history of asthma, hives, eczema or rhinitis. Physical Exam Physical Exam Narrative General: alert, cooperative, no distress, appears stated age Head: normocephalic, without obvious abnormality, atraumatic Eyes: conjunctivae/corneas clear. PERRL, EOM's intact Throat: lips, mucosa, and tongue normal. MMM Neck: supple, symmetrical, trachea midline, and no JVD Lungs: clear to auscultation bilaterally Heart: regular rate and rhythm, S1, S2 normal, no murmur, click, rub or gallop Abdomen: soft, non-tender, non-distended, bowel sounds normal; no masses or organomegaly Extremities: sactral wound noted, dehisced, bandages/dressings c/d/i Pulses: 2+ and symmetric Skin: skin color, texture, turgor normal; no rashes or lesions Neurologic: grossly normal, no focal deficits Last 24 Hour Vital Signs Date Time Temp Pulse Resp B/P Pulse Ox O2 Delivery O2 Flow Rate FiO2 11/15/16 16:58 97.7 57 14 101/69 100 Room Air 11/15/16 14:35 97.7 14 111/69 100 Room Air 11/15/16 14:19 97.7 84 14 111/69 100 Room Air Laboratory Tests Test 11/15/16 15:00 11/15/16 15:50 White Blood Count 5.9 K/UL (4.8-10.8) Red Blood Count 4.40 M/UL (4.20-5.40) Hemoglobin 10.3 G/DL (12.0-16.0) L Hematocrit 34.0 % (37.0-47.0) L Mean Corpuscular Volume 77 FL (80-99) L Mean Corpuscular Hemoglobin 23.4 PG (27.0-31.0) L Mean Corpuscular Hemoglobin Concent 30.3 G/DL (32.0-36.0) L Red Cell Distribution Width 14.8 % (11.6-14.8) Platelet Count 334 K/UL (150-450) Mean Platelet Volume 7.5 FL (6.5-10.1) Neutrophils (%) (Auto) 57.2 % (45.0-75.0) Lymphocytes (%) (Auto) 34.6 % (20.0-45.0) Monocytes (%) (Auto) 6.1 % (1.0-10.0) Eosinophils (%) (Auto) 1.0 % (0.0-3.0) Basophils (%) (Auto) 1.2 % (0.0-2.0) Sodium Level 139 mEQ/L (135-145) Potassium Level 3.8 mEQ/L (3.4-4.9) Chloride Level 100 mEQ/L (98-107) Carbon Dioxide Level 25 mEQ/L (20-30) Anion Gap 14 (5-15) Blood Urea Nitrogen 10 mg/dL (7-23) Creatinine 0.7 mg/dL (0.5-0.9) Estimat Glomerular Filtration Rate > 60 mL/min (>60) Glucose Level 67 mg/dL (74-106) L Lactic Acid Level 2.20 mmol/L (0.66-2.22) 1.30 mmol/L (0.66-2.22) Calcium Level 9.0 mg/dL (8.6-10.2) Total Bilirubin 0.3 mg/dL (0.0-1.2) Aspartate Amino Transf (AST/SGOT) 17 U/L (5-40) Alanine Aminotransferase (ALT/SGPT) 10 U/L (3-33) Alkaline Phosphatase 76 U/L (35-104) Total Protein 7.5 g/dL (6.6-8.7) Albumin 4.1 g/dL (3.5-5.2) Globulin 3.4 g/dL Albumin/Globulin Ratio 1.2 (1.0-2.7) Urine Color Pale yellow Urine Appearance Clear Urine pH 6 (4.5-8.0) Urine Specific [place] 1.015 (1.005-1.035) Urine Protein Negative (NEGATIVE) Urine Glucose (UA) Negative (NEGATIVE) Urine Ketones Negative (NEGATIVE) Urine Occult Blood Negative (NEGATIVE) Urine Nitrite Negative (NEGATIVE) Urine Bilirubin Negative (NEGATIVE) Urine Urobilinogen Normal MG/DL (0.0-1.0) Urine Leukocyte Esterase Negative (NEGATIVE) Urine HCG, Qualitative Negative Height (Feet): 5 Height (Inches): 9.00 Weight (Pounds): 300 Medications Current Medications Medications (Trade) Dose Ordered Sig/Carl Route PRN Reason Start Time Stop Time Status Last Admin Dose Admin Acetaminophen (Tylenol) 650 mg Q4H PRN ORAL Mild Pain (Pain Scale 1-3) 11/15/16 17:00 12/15/16 16:59 Acetaminophen (Tylenol) 650 mg Q4H PRN ORAL fever 11/15/16 17:00 12/15/16 16:59 Al Hydroxide/Mg Hydroxide (Mylanta II) 30 ml Q6H PRN ORAL dyspepsia 11/15/16 17:00 12/15/16 16:59 Bisacodyl (Dulcolax) 10 mg HSPRN PRN RECTAL Constipation 11/15/16 17:00 12/15/16 16:59 Cefazolin Sodium/ Dextrose (Ancef/D5W) 55 ml @ 110 mls/hr Q8HR IVPB 11/15/16 22:00 11/22/16 21:59 Dextrose STAT PRN IV Hypoglycemia 11/15/16 17:00 12/15/16 16:59 Dextrose/Sodium Chloride (D5ns) 1,000 ml @ 50 mls/hr Q20H IV 11/15/16 18:00 12/15/16 17:59 Diphenhydramine HCl (Benadryl) 25 mg Q6H PRN ORAL Itching/Pruritis 11/15/16 17:00 12/15/16 16:59 Docusate Sodium (Colace) 100 mg EVERY 12 HOURS ORAL 11/15/16 21:00 12/15/16 20:59 Magnesium Hydroxide (Mom) 30 ml HSPRN PRN ORAL Constipation 11/15/16 17:00 12/15/16 16:59 Morphine Sulfate (Morphine Sulfate) 2 mg Q4HR PRN IVP Moderate Pain (Pain Scale 4-6) 11/15/16 17:00 11/22/16 16:59 Morphine Sulfate (Morphine Sulfate) 4 mg Q4HR PRN IVP Severe Pain (Pain Scale 7-10) 11/15/16 17:00 11/22/16 16:59 Ondansetron HCl (Zofran) 4 mg Q6H PRN IVP Nausea & Vomiting 11/15/16 17:00 12/15/16 16:59 Polyethylene Glycol (Miralax) 17 gm HSPRN PRN ORAL Constipation 11/15/16 17:00 12/15/16 16:59 Temazepam (Restoril) 15 mg HSPRN PRN ORAL Insomnia 11/15/16 17:00 11/22/16 16:59 Assessment/Plan Problem List: (1) Dehiscence of surgical wound Assessment & Plan: Admit to inpatient Check blood cx Start IV abx Pain control Supp care Surgical consult If patient is required to have surgery, based on the patient's medical history, and other available ancillary data, the patient is a LOW risk for an INTERMEDIATE risk procedure. Per the most recent ACC/AHA guidelines, the patient does not need any further cardiopulmonary testing prior to the procedure and there do not appear to be any clear medical contraindications to proceeding with the proposed procedure. A total of 32 mins of additional time was spent with this patient, care coordination and counseling, in addition to the face to face time with the patient. ICD Codes: T81.31XA - Disruption of external operation (surgical) wound, not elsewhere classified, initial encounter SNOMED: [id number] Qualifiers: Qualified Codes: T81.31XA - Disruption of external operation (surgical) wound, not elsewhere classified, initial encounter ENID DAVIS Nov 15, 2016 17:57
[2016-11-15] MEDS: D5NS 1,000 ML IV SCH (18:03)
[2016-11-15 18:06] VITALS: BP 104/62
[2016-11-15] MEDS: Morphine Sulfate 2mg/ml Inj IVP PRN (18:24)
[2016-11-15 20:35] VITALS: BP 102/50
[2016-11-15] MEDS: Docusate 100mg cap ORAL SCH (21:17)
[2016-11-15] MEDS: ceFAZolin sod 1 GM in D5W 55 ML IVPB SCH (21:18)
[2016-11-16] VITALS (10 sets, daily range): BP systolic 88–130; BP diastolic 46–74
[2016-11-16] MEDS: Morphine Sulfate 2mg/ml Inj IVP PRN ×2 (00:39→10:49)
[2016-11-16] MEDS: ceFAZolin sod 1 GM in D5W 55 ML IVPB SCH ×2 (05:10→20:21)
[2016-11-16 07:07] LABS: ANION GAP 10 (5-15); BASOPHILS % (AUTO) 1.4 % (0.0-2.0); CALCIUM 8.6 mg/dL (8.6-10.2); CARBON DIOXIDE 28 mEQ/L (20-30); CHLORIDE 103 mEQ/L (98-107); CREATININE 0.7 mg/dL (0.5-0.9); EOSINOPHILS % (AUTO) 3.3 % (0.0-3.0); GLOMERULAR FILTRATION RATE > 60 mL/min (>60); HEMOLYSIS 8; LYMPHOCYTES % (AUTO) 48.6 % (20.0-45.0); MEAN CORPUSCULAR HEMOGLOBIN 24.5 PG (27.0-31.0); MEAN CORPUSCULAR HGB CONC 31.7 G/DL (32.0-36.0); MEAN CORPUSCULAR VOLUME 77 FL (80-99); MEAN PLATELET VOLUME 7.6 FL (6.5-10.1); MONOCYTES % (AUTO) 7.5 % (1.0-10.0); NEUTROPHILS % (AUTO) 39.3 % (45.0-75.0); PLATELET COUNT 289 K/UL (150-450); RED BLOOD COUNT 3.77 M/UL (4.20-5.40); RED CELL DISTRIBUTION WIDTH 15.1 % (11.6-14.8); SODIUM 141 mEQ/L (135-145); WHITE BLOOD COUNT 4.9 K/UL (4.8-10.8)
[2016-11-16] MEDS: Docusate 100mg cap ORAL SCH (08:45)
[2016-11-16] MEDS ORDERED: Tubing IV Secondary IV ONE (10:03)
[2016-11-16] MEDS ORDERED: D5NS 1000ml IV ONE (10:03)
[2016-11-16] MEDS ORDERED: Glycopyrrolate 0.2mg/ml 1ml Vial ONE (12:00)
[2016-11-16] MEDS ORDERED: fentaNYL 100 mcg/2 mL IV ONE (12:00)
[2016-11-16] MEDS ORDERED: Neostigmine 1mg/ml 10ml Inj ONE (12:00)
[2016-11-16] MEDS ORDERED: Ketorolac 30mg Inj ONE (12:00)
[2016-11-16] MEDS ORDERED: Midazolam 2mg/2ml Inj ONE (12:00)
[2016-11-16] MEDS ORDERED: Succinylcholine 20mg/ml 10ml vial ONE (12:00)
[2016-11-16] MEDS ORDERED: Nimbex 2mg/ml Inj 10ML IVP ONE (12:00)
[2016-11-16] MEDS ORDERED: Propofol 10mg/ml 20ml IV ONE (12:00)
--- NOTE | 2016-11-16 12:13 | Pre-Procedure Note/Attestation ---
Pre-Procedure Note/Attestation Complete Prior to Procedure Planned Procedure: not applicable Procedure Narrative: Debridement and partial closure of lower back wound with wound vac placement Attestation I attest that I discussed the nature of the procedure; its benefits; risks and complications; and alternatives (and the risks and benefits of such alternatives ), prior to the procedure, with the patient (or the patient's legal business services sales representative). I attest that, if there was a reasonable possibility of needing a blood transfusion, the patient (or the patient's legal business services sales representative) was given the [facility] standardized written summary, pursuant to the [employer] Fili Blood Safety Act ([place] Health and Safety Code # 1645, as amended). I attest that I re-evaluated the patient just prior to the surgery and that there has been no change in the patient's H&P, except as documented below: MARÍA ELENA LANDRUM Nov 16, 2016 12:13
[2016-11-16] MEDS ORDERED: Metoclopramide 10mg/2ml Inj IVP PRN ×2 (12:15→14:00)
[2016-11-16] MEDS ORDERED: Rate Change PCA 1 Each MISC PRN (12:15)
[2016-11-16] MEDS ORDERED: Zolpidem 5mg tab ORAL PRN (12:15)
[2016-11-16] MEDS ORDERED: PCA HYDROmorphone 1mg/ml 30 ML IV PRN (12:15)
--- NOTE | 2016-11-16 12:15 | Operative Note - PDOC ---
Operative Note Operative Note Procedure: Debridement of lower back wound with partial closure and wound vac placement Anesthesia: general Specimen: yes Condition: stable Estimated Blood Loss: minimal Drains: wound vac Implant(s) used?: No MARÍA ELENA LANDRUM Nov 16, 2016 12:15
[2016-11-16] MEDS ORDERED: Bacitracin Oint 15gm Tube TOPIC ONE (13:36)
[2016-11-16] MEDS ORDERED: LR 1000ml 1,000 ML IVLG SCH (13:57)
[2016-11-16] MEDS ORDERED: Midazolam 2mg/2ml Inj IVP PRN (14:00)
[2016-11-16] MEDS ORDERED: Meperidine 25mg/0.5ml Inj IV PRN (14:00)
[2016-11-16] MEDS ORDERED: Hydromorphone 0.5mg/0.5ml inj IVP PRN (14:00)
[2016-11-16] MEDS ORDERED: DiphenhydrAMINE 50mg/ml Inj IVP PRN (14:00)
[2016-11-16] MEDS ORDERED: Lidocaine 1% 10mg/ml/Epi 0.005mg/ml 30ml vial INJ ONE (14:49)
--- NOTE | 2016-11-16 14:51 | Anethesia Preoperative Eval ---
Anesthesia Pre-op PMH/ROS General Date of Evaluation: Nov 16, 2016 Time of Evaluation: 12:40 Anesthesiologist: Hussain ASA Score: ASA 3 Mallampati Score Class I : Soft palate, uvula, fauces, pillars visible Class II: Soft palate, uvula, fauces visible Class III: Soft palate, base of uvula visible Class IV: Only hard plate visible Mallampati Classification: Class II Surgeon: Alaina Diagnosis: Lower back infected wound Surgical Procedure: Revision of lower back infected wound Anesthesia History: PONV Family History: no anesthesia problems Allergies: Coded Allergies: No Known Allergies (Unverified , 04/09/16) Medications: see eMAR Past Medical History Cardiovascular: Denies: CAD, HTN, [place], arrhythmia, other, valve dz Pulmonary: Denies: COPD, JOSÉ ANTONIO, asthma, other Gastrointestinal/Genitourinary: Reports: GERD, Denies: CRI, ESRD, other Neurologic/Psychiatric: Reports: depression/anxiety, Denies: CVA, TIA, dementia, other Endocrine: Denies: DM, hypothyroidism, other, steroids HEENT: Denies: [place] (L), [place] (R), cataract (L), cataract (R), glaucoma, other Hematology/Immune: Denies: DVT, anemia, bleeding disorder, other Musculoskeletal/Integumentary: Reports: other - recurrent HS, Denies: DDD, DJD, OA, RA, edema Other: obesity PMH Narrative: as above PSxH Narrative: see chart Anesthesia Pre-op Phys. Exam Physician Exam Last Vital Signs Date Time Temp Pulse Resp B/P Pulse Ox O2 Delivery O2 Flow Rate FiO2 11/16/16 14:30 53 16 118/59 17 Nasal Cannula 3.0 11/16/16 13:51 98.2 Constitutional: NAD Neurologic: CN 2-12 intact Cardiovascular: RRR Respiratory: CTA Gastrointestinal: other - obesity Airway Exam Mallampati Score: Class II MO: full Neck: flexible ROM: full Teeth: intact Dentures: no lower, no upper Anesthesia Pre-op A/P Labs Hematology Test 11/15/16 15:00 11/16/16 05:20 White Blood Count 5.9 K/UL (4.8-10.8) 4.9 K/UL (4.8-10.8) Red Blood Count 4.40 M/UL (4.20-5.40) 3.77 M/UL (4.20-5.40) L Hemoglobin 10.3 G/DL (12.0-16.0) L 9.2 G/DL (12.0-16.0) L Hematocrit 34.0 % (37.0-47.0) L 29.2 % (37.0-47.0) L Mean Corpuscular Volume 77 FL (80-99) L 77 FL (80-99) L Mean Corpuscular Hemoglobin 23.4 PG (27.0-31.0) L 24.5 PG (27.0-31.0) L Mean Corpuscular Hemoglobin Concent 30.3 G/DL (32.0-36.0) L 31.7 G/DL (32.0-36.0) L Red Cell Distribution Width 14.8 % (11.6-14.8) 15.1 % (11.6-14.8) H Platelet Count 334 K/UL (150-450) 289 K/UL (150-450) Mean Platelet Volume 7.5 FL (6.5-10.1) 7.6 FL (6.5-10.1) Neutrophils (%) (Auto) 57.2 % (45.0-75.0) 39.3 % (45.0-75.0) L Lymphocytes (%) (Auto) 34.6 % (20.0-45.0) 48.6 % (20.0-45.0) H Monocytes (%) (Auto) 6.1 % (1.0-10.0) 7.5 % (1.0-10.0) Eosinophils (%) (Auto) 1.0 % (0.0-3.0) 3.3 % (0.0-3.0) H Basophils (%) (Auto) 1.2 % (0.0-2.0) 1.4 % (0.0-2.0) Chemistry Test 11/15/16 15:00 11/15/16 15:50 11/16/16 05:20 Sodium Level 139 mEQ/L (135-145) 141 mEQ/L (135-145) Potassium Level 3.8 mEQ/L (3.4-4.9) 4.0 mEQ/L (3.4-4.9) Chloride Level 100 mEQ/L (98-107) 103 mEQ/L (98-107) Carbon Dioxide Level 25 mEQ/L (20-30) 28 mEQ/L (20-30) Anion Gap 14 (5-15) 10 (5-15) Blood Urea Nitrogen 10 mg/dL (7-23) 11 mg/dL (7-23) Creatinine 0.7 mg/dL (0.5-0.9) 0.7 mg/dL (0.5-0.9) Estimat Glomerular Filtration Rate > 60 mL/min (>60) > 60 mL/min (>60) Glucose Level 67 mg/dL (74-106) L 100 mg/dL (74-106) Lactic Acid Level 2.20 mmol/L (0.66-2.22) 1.30 mmol/L (0.66-2.22) Calcium Level 9.0 mg/dL (8.6-10.2) 8.6 mg/dL (8.6-10.2) Total Bilirubin 0.3 mg/dL (0.0-1.2) Aspartate Amino Transf (AST/SGOT) 17 U/L (5-40) Alanine Aminotransferase (ALT/SGPT) 10 U/L (3-33) Alkaline Phosphatase 76 U/L (35-104) Total Protein 7.5 g/dL (6.6-8.7) Albumin 4.1 g/dL (3.5-5.2) Globulin 3.4 g/dL Albumin/Globulin Ratio 1.2 (1.0-2.7) Urine Test Test 11/15/16 15:50 Urine HCG, Qualitative Negative Risk Assessment & Plan Assessment: ASA 3 Plan: GA with ETT prone position PONV prevention Status Change Before Surgery: No Pre-Antibiotics Drug: Ancef 1 gr. Given Within 1 Hr of Incision: Yes Time Given: 13:02 KENTON CALL M.D. Nov 16, 2016 14:51
--- NOTE | 2016-11-16 14:54 | Immediate Post-Op Evaluation ---
Immediate Post-Op Evalulation Immediate Post-Op Evalulation Procedure: Revision and partion closure of lower back wound with wound vac placement Date of Evaluation: Nov 16, 2016 Time of Evaluation: 13:52 IV Fluids: 600 Blood Products: none Estimated Blood Loss: min Urinary Output: none Blood Pressure Systolic: 132 Blood Pressure Diastolic: 64 Pulse Rate: 58 Respiratory Rate: 20 O2 Sat by Pulse Oximetry: 99 Temperature (Fahrenheit): 97.6 Pain Score (1-10): 2 Nausea: No Vomiting: No Complications none Patient Status: reacts, patent, none Hydration Status: adequate KENTON CALL M.D. Nov 16, 2016 14:54
[2016-11-16] MEDS: HYDROmorphone 1mg/ml Carpuject SUBQ PRN (16:44)
[2016-11-16] MEDS: D5NS 1,000 ML IV SCH (16:44)
--- NOTE | 2016-11-16 16:52 | General Progress Note ---
Assessment/Plan Problem List: (1) Dehiscence of surgical wound Assessment & Plan: s/p surgical repair of wound dehiscence f/u blood cx Cont IV abx Pain control Supp care Wound care per Surgery A total of 32 mins of additional time was spent with this patient, care coordination and counseling, in addition to the face to face time with the patient. ICD Codes: T81.31XA - Disruption of external operation (surgical) wound, not elsewhere classified, initial encounter SNOMED: [id number] Qualifiers: Qualified Codes: T81.31XA - Disruption of external operation (surgical) wound, not elsewhere classified, initial encounter Subjective Date patient seen: Nov 16, 2016 Time patient seen: 16:50 ROS Limited/Unobtainable: No Allergies: Coded Allergies: No Known Allergies (Unverified , 04/09/16) Subjective s/p wound dehiscence surgery earlier today, no periop or postop complications. No chest pain or dyspnea, no n/v Objective Last 24 Hour Vital Signs Date Time Temp Pulse Resp B/P Pulse Ox O2 Delivery O2 Flow Rate FiO2 11/16/16 16:00 97.7 71 20 106/57 100 Room Air 11/16/16 15:01 97.6 11/16/16 14:54 58 20 99 11/16/16 14:45 98.5 55 17 111/53 17 Nasal Cannula 3.0 11/16/16 14:30 53 16 118/59 17 Nasal Cannula 3.0 11/16/16 14:15 51 15 123/74 17 Nasal Cannula 3.0 11/16/16 14:00 52 18 124/68 17 Simple Mask 6.0 11/16/16 13:55 58 18 122/74 17 Simple Mask 6.0 11/16/16 13:51 98.2 65 18 130/73 100 Simple Mask 6.0 11/16/16 12:00 97.9 59 20 88/46 100 Room Air 11/16/16 08:00 97.3 60 20 101/60 100 Room Air 11/16/16 01:09 97.7 11/16/16 01:06 97.7 59 20 104/53 97 Room Air 11/15/16 20:35 98.1 62 20 102/50 98 Room Air 11/15/16 18:06 98.0 67 20 104/62 100 Room Air 11/15/16 16:58 97.7 57 14 101/69 100 Room Air Intake and Output 11/15/16 11/16/16 19:00 07:00 Intake Total 150 ml 500 ml Balance 150 ml 500 ml Intake IV Total 150 ml 500 ml # Voids 1 Laboratory Tests 11/16/16 05:20: White Blood Count 4.9, Red Blood Count 3.77L, Hemoglobin 9.2L, Hematocrit 29.2L , Mean Corpuscular Volume 77L, Mean Corpuscular Hemoglobin 24.5L, Mean Corpuscular Hemoglobin Concent 31.7L, Red Cell Distribution Width 15.1H, Platelet Count 289, Mean Platelet Volume 7.6, Neutrophils (%) (Auto) 39.3L, Lymphocytes (%) (Auto) 48.6H, Monocytes (%) (Auto) 7.5, Eosinophils (%) (Auto) 3.3H, Basophils (%) (Auto) 1.4, Sodium Level 141, Potassium Level 4.0, Chloride Level 103, Carbon Dioxide Level 28, Anion Gap 10, Blood Urea Nitrogen 11, Creatinine 0.7, Estimat Glomerular Filtration Rate > 60, Glucose Level 100, Calcium Level 8.6 Height (Feet): 5 Height (Inches): 7.00 Weight (Pounds): 299 Objective General: alert, cooperative, no distress, appears stated age Head: normocephalic, without obvious abnormality, atraumatic Eyes: conjunctivae/corneas clear. PERRL, EOM's intact Throat: lips, mucosa, and tongue normal. MMM Neck: supple, symmetrical, trachea midline, and no JVD Lungs: clear to auscultation bilaterally Heart: regular rate and rhythm, S1, S2 normal, no murmur, click, rub or gallop Abdomen: soft, non-tender, non-distended, bowel sounds normal; no masses or organomegaly Extremities: dressings c/d/i Pulses: 2+ and symmetric Skin: skin color, texture, turgor normal; no rashes or lesions Neurologic: grossly normal, no focal deficits ENID DAVIS Nov 16, 2016 16:52
--- NOTE | 2016-11-16 18:00 | Consultation ---
DATE OF CONSULTATION: 11/16/2016 CONSULTING PHYSICIAN: Veronica Eason M.D. REFERRING PHYSICIAN: Bryce Corral M.D. HISTORY OF PRESENT ILLNESS: This is a 41-year-old female, admitted to the emergency room for a lower back wound dehiscence status post reconstruction of a pilonidal wound. The patient was admitted for pain and drainage. I am seeing the patient for surgical treatment of this wound. PAST MEDICAL HISTORY: Significant for previous reconstructive procedures for hidradenitis. PAST SURGICAL HISTORY: Significant for previous reconstructive procedures for hidradenitis. MEDICATIONS: Include antibiotics. ALLERGIES: None. PHYSICAL EXAMINATION: GENERAL: The patient is alert, oriented, and obese. LUNGS: Clear to auscultation bilaterally. ABDOMEN: Soft, nontender, and nondistended. BACK: Examination of the lower back reveals a dehiscence of her reconstruction of her pilonidal wound with wound measuring 4 x 6 cm in dimension with about 2.5 cm of depth with mild drainage. ASSESSMENT AND PLAN: This is a 41-year-old female with a lower back wound dehiscence, so we taken her to the operating room for debridement and wound VAC placement and partial wound reclosure. Veronica Foley M.D. DR: VLAD JOB#: [id number] CC:
[2016-11-16] MEDS ORDERED: PCA shift volume MISC SCH (19:00)
--- NOTE | 2016-11-16 20:15 | Operative Note - Dictated ---
DATE OF OPERATION: 11/16/2016 PREOPERATIVE DIAGNOSIS: Dehisced lower back wound, status post pilonidal reconstruction. POSTOPERATIVE DIAGNOSIS: Dehisced lower back wound, status post pilonidal reconstruction.. PROCEDURES: 1. Debridement of lower back wound. 2. Elevation of a right-sided local fasciocutaneous flap with partial reclosure of wound. 3. Elevation of a left-sided local buttock fasciocutaneous flap for partial closure of buttock wound. 4. Wound VAC placement. SURGEON: Veronica Foley M.D [employer]: Raisa Hammer M.D. ANESTHESIA: General. COMPLICATIONS: None. DRAINS: Included a wound VAC. DISPOSITION: Stable to the recovery room. INDICATIONS FOR SURGERY: This is a 41-year-old female, who is approximately two weeks postoperative from a reconstruction of the pilonidal wound with a rhomboid flap. She was doing well until about a week postop where she noted some opening of her wound. The wound dehiscence progressed and she has been doing local wound care at home and presented to the emergency room with drainage and pain. I saw the patient and felt that she was an appropriate candidate for debridement and washout of the wound with partial reclosure and wound vac placement. She understood the risks and benefits of surgery and agreed to proceed. DETAILS OF THE OPERATION: The patient was brought to the operating room and laid in the prone position on the operating table. Her lower back was prepped and draped in a sterile and usual fashion. We first began by debriding the wound of its nonviable fibrinous exudate as well as some of the nonviable skin edges down to healthy punctate bleeding. Once this was done, I felt that the superior aspect of the wound was to be under too much tension for partial re-closure. As such, the inferior aspect of the wound was felt to be more appropriate for her flap readvancement. As such a left and right-sided fasciocutaneous local buttock flap was reelevated on both sides. First on the left side by undermining the flap for approximately 2-1/2 centimeters with perforators off the inferior gluteal artery perfusing this flap and in a similar fashion the contralateral right-sided local flap was elevated with perfusion of the flap coming from the corresponding ipsilateral inferior gluteal artery. Once the flaps were fully mobilized on both sides the wound inferiorly can be brought together without tension using #0 and 2-0 Vicryl sutures and 2-0 Prolene were used to close the skin. At this point, I felt that it would not be prudent to proceed with a complete closure of the wound. As such, the wound VAC was then placed into the wound and secured with 175 mmHg for pressure and the plan will be to re-change the wound VAC on Saturday. The patient tolerated the procedure well and there were no complications. Veronica Foley M.D. DR: HANSEL JOB#: [id number] CC:
[2016-11-16] MEDS ORDERED: Heparin 5000 units/ml inj SUBQ SCH (22:00)
[2016-11-17] VITALS (7 sets, daily range): BP systolic 80–124; BP diastolic 43–70
[2016-11-17] MEDS: HYDROmorphone 1mg/ml Carpuject SUBQ PRN ×2 (01:11→11:01)
[2016-11-17] MEDS: ceFAZolin sod 1 GM in D5W 55 ML IVPB SCH ×3 (05:01→21:08)
[2016-11-17] MEDS: Docusate 100mg cap ORAL SCH ×2 (08:52→21:08)
[2016-11-17] MEDS: Heparin 5000 units/ml inj SUBQ SCH ×2 (08:57→21:09)
--- NOTE | 2016-11-17 09:25 | 48 Hour Post Anesthesia Eval ---
Post Anesthesia Evaluation Procedure: Revision and partion closure of lower back wound with wound vac placement Date of Evaluation: Nov 17, 2016 Blood Pressure Systolic: 108 0: 65 Pulse Rate: 56 Respiratory Rate: 18 Temperature (Fahrenheit): 97.6 O2 Sat by Pulse Oximetry: 98 Airway: patent Nausea: No Vomiting: No Pain Intensity: 2 Hydration Status: adequate Cardiopulmonary Status: stable Mental Status/LOC: patient returned to baseline Follow-up Care/Observations: n/a Post-Anesthesia Complications: none Follow-up care needed: N/A KENTON CALL M.D. Nov 17, 2016 09:25
--- NOTE | 2016-11-17 09:53 | General Progress Note ---
Progress Note Progress Note Pt seen and examined. POD# 1from debridement of lower back wound with wound vac placement. Doing well. Wound vac in place and fxing. Will replace vac on Saturday and will need to have it as an outpt as well. MARÍA ELENA Victor MD Nov 17, 2016 09:53
[2016-11-17] MEDS: D5NS 1,000 ML IV SCH (10:50)
--- NOTE | 2016-11-17 14:08 | General Progress Note ---
Assessment/Plan Problem List: (1) Dehiscence of surgical wound Assessment & Plan: s/p surgical repair of wound dehiscence POD#1 f/u blood cx Cont IV abx Pain control Supp care Wound care per Surgery A total of 32 mins of additional time was spent with this patient, care coordination and counseling, in addition to the face to face time with the patient. ICD Codes: T81.31XA - Disruption of external operation (surgical) wound, not elsewhere classified, initial encounter SNOMED: [id number] Qualifiers: Qualified Codes: T81.31XA - Disruption of external operation (surgical) wound, not elsewhere classified, initial encounter Subjective Date patient seen: Nov 17, 2016 Time patient seen: 14:08 ROS Limited/Unobtainable: No Allergies: Coded Allergies: No Known Allergies (Unverified , 04/09/16) Subjective s/p wound dehiscence surgery POD#1, no periop or postop complications. No chest pain or dyspnea, no n/v Objective Last 24 Hour Vital Signs Date Time Temp Pulse Resp B/P Pulse Ox O2 Delivery O2 Flow Rate FiO2 11/17/16 11:56 97.7 64 20 94/59 96 Room Air 11/17/16 09:25 56 18 98 11/17/16 08:43 97.5 61 20 101/56 96 Room Air 11/17/16 00:00 97.3 68 18 118/62 97 Room Air 11/16/16 16:00 97.7 71 20 106/57 100 Room Air 11/16/16 15:01 97.6 11/16/16 14:54 58 20 99 11/16/16 14:45 98.5 55 17 111/53 17 Nasal Cannula 3.0 11/16/16 14:30 53 16 118/59 17 Nasal Cannula 3.0 11/16/16 14:15 51 15 123/74 17 Nasal Cannula 3.0 Intake and Output 11/16/16 11/17/16 19:00 07:00 Intake Total 1600 ml 640 ml Output Total 30 ml 40 ml Balance 1570 ml 600 ml Intake Oral 300 ml 240 ml IV Total 1300 ml 400 ml Output Drainage Total 40 ml Estimated Blood Loss 30 ml # Voids 2 2 Height (Feet): 5 Height (Inches): 7.00 Weight (Pounds): 299 Objective General: alert, cooperative, no distress, appears stated age Head: normocephalic, without obvious abnormality, atraumatic Eyes: conjunctivae/corneas clear. PERRL, EOM's intact Throat: lips, mucosa, and tongue normal. MMM Neck: supple, symmetrical, trachea midline, and no JVD Lungs: clear to auscultation bilaterally Heart: regular rate and rhythm, S1, S2 normal, no murmur, click, rub or gallop Abdomen: soft, non-tender, non-distended, bowel sounds normal; no masses or organomegaly Extremities: dressings c/d/i Pulses: 2+ and symmetric Skin: skin color, texture, turgor normal; no rashes or lesions Neurologic: grossly normal, no focal deficits ENID DAVIS Nov 17, 2016 14:08
[2016-11-18 04:00] VITALS: BP 112/49
[2016-11-18] MEDS: ceFAZolin sod 1 GM in D5W 55 ML IVPB SCH ×3 (05:21→20:36)
[2016-11-18] MEDS: D5NS 1,000 ML IV SCH (05:21)
[2016-11-18 10:00] VITALS: BP 85/42
[2016-11-18] MEDS: Docusate 100mg cap ORAL SCH ×2 (10:19→20:36)
[2016-11-18] MEDS: Heparin 5000 units/ml inj SUBQ SCH ×2 (10:21→20:38)
[2016-11-18 12:00] VITALS: BP 139/59
[2016-11-18 13:00] LABS: BASOPHILS % (AUTO) 1.1 % (0.0-2.0); EOSINOPHILS % (AUTO) 3.2 % (0.0-3.0); LYMPHOCYTES % (AUTO) 36.4 % (20.0-45.0); MEAN CORPUSCULAR HEMOGLOBIN 24.1 PG (27.0-31.0); MEAN CORPUSCULAR VOLUME 78 FL (80-99); MEAN PLATELET VOLUME 7.4 FL (6.5-10.1); MONOCYTES % (AUTO) 5.8 % (1.0-10.0); NEUTROPHILS % (AUTO) 53.5 % (45.0-75.0); PLATELET COUNT 292 K/UL (150-450); RED BLOOD COUNT 3.78 M/UL (4.20-5.40); RED CELL DISTRIBUTION WIDTH 15.3 % (11.6-14.8); WHITE BLOOD COUNT 4.9 K/UL (4.8-10.8)
[2016-11-18 13:20] LABS: ANION GAP 13 (5-15); CALCIUM 8.4 mg/dL (8.6-10.2); CARBON DIOXIDE 27 mEQ/L (20-30); CHLORIDE 98 mEQ/L (98-107); CREATININE 0.7 mg/dL (0.5-0.9); GLOMERULAR FILTRATION RATE > 60 mL/min (>60); HEMOLYSIS 5; POTASSIUM 3.9 mEQ/L (3.4-4.9); SODIUM 138 mEQ/L (135-145)
--- NOTE | 2016-11-18 13:44 | General Progress Note ---
Assessment/Plan Problem List: (1) Dehiscence of surgical wound Assessment & Plan: s/p surgical repair of wound dehiscence POD#2 1L NS fluid bolus, monitor BP closely Check CBC, BMP for today f/u blood cx Cont IV abx Pain control Supp care Wound care per Surgery A total of 32 mins of additional time was spent with this patient, care coordination and counseling, in addition to the face to face time with the patient. ICD Codes: T81.31XA - Disruption of external operation (surgical) wound, not elsewhere classified, initial encounter SNOMED: [id number] Qualifiers: Qualified Codes: T81.31XA - Disruption of external operation (surgical) wound, not elsewhere classified, initial encounter Subjective Date patient seen: Nov 18, 2016 Time patient seen: 13:43 ROS Limited/Unobtainable: No Allergies: Coded Allergies: No Known Allergies (Unverified , 04/09/16) Subjective s/p wound dehiscence surgery POD#2, no periop or postop complications. No chest pain or dyspnea, no n/v. Hypotensive with systolic BP in the 80s, however pt asymptomatic Objective Last 24 Hour Vital Signs Date Time Temp Pulse Resp B/P Pulse Ox O2 Delivery O2 Flow Rate FiO2 11/18/16 12:00 97.9 50 17 139/59 100 Room Air 11/18/16 10:00 97.3 18 85/42 99 Room Air 11/18/16 05:52 97.0 11/18/16 05:20 60 11/18/16 04:00 96.8 50 18 112/49 97 Room Air 11/17/16 22:17 60 18 115/70 93 Room Air 11/17/16 20:00 98.2 64 18 80/43 98 Room Air 11/17/16 18:00 97.6 85 18 124/57 100 Room Air 11/17/16 16:12 97.1 54 20 88/55 100 Room Air Intake and Output 11/17/16 11/18/16 19:00 07:00 Intake Total 1575 ml 610 ml Output Total 20 ml 20 ml Balance 1555 ml 590 ml Intake Oral 1320 ml IV Total 255 ml 610 ml Output Drainage Total 20 ml 20 ml # Voids 2 1 Laboratory Tests 11/18/16 12:45: White Blood Count 4.9, Red Blood Count 3.78L, Hemoglobin 9.1L, Hematocrit 29.4L , Mean Corpuscular Volume 78L, Mean Corpuscular Hemoglobin 24.1L, Mean Corpuscular Hemoglobin Concent 31.0L, Red Cell Distribution Width 15.3H, Platelet Count 292, Mean Platelet Volume 7.4, Neutrophils (%) (Auto) 53.5, Lymphocytes (%) (Auto) 36.4, Monocytes (%) (Auto) 5.8, Eosinophils (%) (Auto) 3.2H, Basophils (%) (Auto) 1.1, Sodium Level 138, Potassium Level 3.9, Chloride Level 98, Carbon Dioxide Level 27, Anion Gap 13, Blood Urea Nitrogen 7, Creatinine 0.7, Estimat Glomerular Filtration Rate > 60, Glucose Level 121H, Calcium Level 8.4L Height (Feet): 5 Height (Inches): 7.00 Weight (Pounds): 299 Objective General: alert, cooperative, no distress, appears stated age Head: normocephalic, without obvious abnormality, atraumatic Eyes: conjunctivae/corneas clear. PERRL, EOM's intact Throat: lips, mucosa, and tongue normal. MMM Neck: supple, symmetrical, trachea midline, and no JVD Lungs: clear to auscultation bilaterally Heart: regular rate and rhythm, S1, S2 normal, no murmur, click, rub or gallop Abdomen: soft, non-tender, non-distended, bowel sounds normal; no masses or organomegaly Extremities: dressings c/d/i Pulses: 2+ and symmetric Skin: skin color, texture, turgor normal; no rashes or lesions Neurologic: grossly normal, no focal deficits ENID DAVIS Nov 18, 2016 13:43
[2016-11-18] MEDS ORDERED: HYDROmorphone 1mg/ml Carpuject SUBQ PRN (14:55)
[2016-11-18 16:00] VITALS: BP 118/50
[2016-11-18 20:00] VITALS: BP 101/61
[2016-11-18 23:30] VITALS: BP 92/50
[2016-11-19 00:04] VITALS: BP 111/58
[2016-11-19] MEDS: D5NS 1,000 ML IV SCH ×2 (02:43→20:20)
[2016-11-19 04:31] VITALS: BP 127/58
[2016-11-19] MEDS: ceFAZolin sod 1 GM in D5W 55 ML IVPB SCH ×3 (05:03→20:19)
[2016-11-19 07:17] LABS: BASOPHILS % (AUTO) 0.8 % (0.0-2.0); EOSINOPHILS % (AUTO) 3.1 % (0.0-3.0); LYMPHOCYTES % (AUTO) 51.7 % (20.0-45.0); MEAN CORPUSCULAR HEMOGLOBIN 25.7 PG (27.0-31.0); MEAN CORPUSCULAR HGB CONC 32.6 G/DL (32.0-36.0); MEAN CORPUSCULAR VOLUME 79 FL (80-99); MEAN PLATELET VOLUME 7.3 FL (6.5-10.1); MONOCYTES % (AUTO) 6.9 % (1.0-10.0); NEUTROPHILS % (AUTO) 37.6 % (45.0-75.0); PLATELET COUNT 225 K/UL (150-450); RED BLOOD COUNT 3.25 M/UL (4.20-5.40); RED CELL DISTRIBUTION WIDTH 14.5 % (11.6-14.8); WHITE BLOOD COUNT 4.3 K/UL (4.8-10.8)
[2016-11-19 08:00] VITALS: BP 132/64
[2016-11-19 08:12] LABS: ANION GAP 12 (5-15); CALCIUM 8.5 mg/dL (8.6-10.2); CARBON DIOXIDE 26 mEQ/L (20-30); CHLORIDE 104 mEQ/L (98-107); CREATININE 0.7 mg/dL (0.5-0.9); GLOMERULAR FILTRATION RATE > 60 mL/min (>60); HEMOLYSIS 0; SODIUM 142 mEQ/L (135-145)
[2016-11-19] MEDS: Docusate 100mg cap ORAL SCH ×2 (08:22→20:18)
[2016-11-19] MEDS: Heparin 5000 units/ml inj SUBQ SCH ×2 (08:27→20:19)
[2016-11-19 12:00] VITALS: BP 105/55
--- NOTE | 2016-11-19 14:35 | Wound Nurse Progress Note ---
Wound RN Progress Note Wound Consult received call from gume for wound vac dressing change per . noted wound bed 100% pink with moderate serosanguinous drainage. site was cleansed and dried,provided with wound vac dressing as ordered. tolerated dressing change well. site at complete suction, no leaks at this time. ALO FERGUSON Nov 19, 2016 14:34
--- NOTE | 2016-11-19 14:58 | Discharge Summary ---
Discharge Summary Hospital Course Date of Admission Nov 15, 2016 at 15:27 Date of Discharge Nov 19, 2016 Admitting Diagnosis open sugical wound Reason for Hospitalization: wound dehiscence AMANDA Griffin is a 41 year old female who was admitted on Nov 15, 2016 at 15: 27 for Open Sugical Wound Consultations Plastic Surgery Procedures See Operative report Hospital Course 41 y/o female presented with surgical wound dehiscence on lower back s/p recent pilonidal reconstructive surgery. Taken to OR by plastic surgery, debridement and dehiscence repair performed without any periop or postop complications. Once her pain was controlled and able to ambulate, and wound stable from surg standpoint, pt was dced home with outpt followup with plastic surgery. Discharge Medications Continued Medications: Escitalopram Oxalate* (Lexapro*) 10 Mg Tablet 10 MG ORAL DAILY, TAB Ondansetron Odt* (Zofran Odt*) 4 Mg Tab.rapdis 4 MG ORAL Q6H PRN for Nausea & Vomiting, #30 TAB Oxycodone/Acetaminophen 5-325* (Percocet 5-325 Mg Tablet*) 1 Each Tablet 1 TAB ORAL Q4H PRN for For Pain, TAB Discharge Condition Upon Discharge: stable Discharge Disposition Patient was discharged to home Discharge Diagnoses: (1) Dehiscence of surgical wound (2) Depression (3) Depressed bipolar I disorder in full remission (4) Hidradenitis suppurativa (5) Pilonidal abscess ENID DAVIS Nov 19, 2016 14:58
[2016-11-19 16:00] VITALS: BP 91/48
[2016-11-19 20:00] VITALS: BP 117/67
[2016-11-20 00:11] VITALS: BP 114/64
[2016-11-20 04:00] VITALS: BP 110/59
[2016-11-20] MEDS: ceFAZolin sod 1 GM in D5W 55 ML IVPB SCH ×2 (04:55→13:30)
[2016-11-20 08:00] VITALS: BP 114/57
[2016-11-20] MEDS: Docusate 100mg cap ORAL SCH ×2 (09:10→21:00)
[2016-11-20] MEDS: Heparin 5000 units/ml inj SUBQ SCH ×2 (09:11→21:00)
[2016-11-20 12:00] VITALS: BP 113/61
[2016-11-20 16:00] VITALS: BP 111/67
[2016-11-20] MEDS: Norco 5mg/325mg tab ORAL PRN (18:07)
--- NOTE | 2016-11-20 18:52 | General Progress Note ---
Assessment/Plan Problem List: (1) Dehiscence of surgical wound Assessment & Plan: s/p surgical repair of wound dehiscence POD#3 f/u blood cx Cont IV abx Pain control Supp care Wound care per Surgery DC planning A total of 32 mins of additional time was spent with this patient, care coordination and counseling, in addition to the face to face time with the patient. ICD Codes: T81.31XA - Disruption of external operation (surgical) wound, not elsewhere classified, initial encounter SNOMED: [id number] Qualifiers: Qualified Codes: T81.31XA - Disruption of external operation (surgical) wound, not elsewhere classified, initial encounter Subjective Date patient seen: Nov 20, 2016 Time patient seen: 18:51 ROS Limited/Unobtainable: No Allergies: Coded Allergies: No Known Allergies (Unverified , 04/09/16) Subjective s/p wound dehiscence surgery POD#3, DC held due to inability to arrange safe dispo plan with wound vac, no periop or postop complications. No chest pain or dyspnea, no n/v. BP improved. Objective Last 24 Hour Vital Signs Date Time Temp Pulse Resp B/P Pulse Ox O2 Delivery O2 Flow Rate FiO2 11/20/16 16:00 97.9 60 18 111/67 100 Room Air 11/20/16 12:00 97.9 48 18 113/61 95 Room Air 11/20/16 08:00 97.9 58 16 114/57 98 Room Air 11/20/16 04:00 97.3 48 19 110/59 95 Room Air 11/20/16 00:11 97.7 50 18 114/64 97 Room Air 11/19/16 20:00 98.8 99 18 117/67 100 Room Air Intake and Output 11/19/16 11/20/16 19:00 07:00 Intake Total 1055 ml 475 ml Output Total 30 ml 5 ml Balance 1025 ml 470 ml Intake Oral 400 ml IV Total 655 ml 475 ml Output Drainage Total 30 ml 5 ml # Voids 1 2 Height (Feet): 5 Height (Inches): 7.00 Weight (Pounds): 299 Objective General: alert, cooperative, no distress, appears stated age Head: normocephalic, without obvious abnormality, atraumatic Eyes: conjunctivae/corneas clear. PERRL, EOM's intact Throat: lips, mucosa, and tongue normal. MMM Neck: supple, symmetrical, trachea midline, and no JVD Lungs: clear to auscultation bilaterally Heart: regular rate and rhythm, S1, S2 normal, no murmur, click, rub or gallop Abdomen: soft, non-tender, non-distended, bowel sounds normal; no masses or organomegaly Extremities: dressings c/d/i Pulses: 2+ and symmetric Skin: skin color, texture, turgor normal; no rashes or lesions Neurologic: grossly normal, no focal deficits ENID DAVIS Nov 20, 2016 18:52
[2016-11-20 20:24] VITALS: BP 118/76
[2016-11-21] VITALS: BP 104/52
[2016-11-21 04:00] VITALS: BP 117/61
[2016-11-21 08:00] VITALS: BP 110/56
[2016-11-21] MEDS: Docusate 100mg cap ORAL SCH (08:28)
[2016-11-21] MEDS: Heparin 5000 units/ml inj SUBQ SCH (08:32)
[2016-11-21] MEDS: Norco 5mg/325mg tab ORAL PRN (08:35)
[2016-11-21 12:00] VITALS: BP 115/74
--- NOTE | 2016-11-21 15:50 | General Progress Note ---
Assessment/Plan Problem List: (1) Dehiscence of surgical wound Assessment & Plan: s/p surgical repair of wound dehiscence POD#4 f/u blood cx Cont IV abx Pain control Supp care Wound care per Surgery DC planning when wound vac safely secured at home A total of 32 mins of additional time was spent with this patient, care coordination and counseling, in addition to the face to face time with the patient. ICD Codes: T81.31XA - Disruption of external operation (surgical) wound, not elsewhere classified, initial encounter SNOMED: [id number] Qualifiers: Qualified Codes: T81.31XA - Disruption of external operation (surgical) wound, not elsewhere classified, initial encounter Subjective Date patient seen: Nov 21, 2016 Time patient seen: 15:49 ROS Limited/Unobtainable: No Allergies: Coded Allergies: No Known Allergies (Unverified , 04/09/16) Subjective s/p wound dehiscence surgery POD#4, DC held due to inability to arrange safe dispo plan with wound vac, no periop or postop complications. No chest pain or dyspnea, no n/v. BP improved. Objective Last 24 Hour Vital Signs Date Time Temp Pulse Resp B/P Pulse Ox O2 Delivery O2 Flow Rate FiO2 11/21/16 12:00 97.5 54 18 115/74 97 Room Air 11/21/16 09:34 97.9 11/21/16 08:00 97.7 75 20 110/56 98 Room Air 11/21/16 04:00 97.9 47 19 117/61 97 Room Air 11/21/16 00:00 97.7 52 19 104/52 98 Room Air 11/20/16 20:24 97.9 59 20 118/76 94 Room Air 11/20/16 16:00 97.9 60 18 111/67 100 Room Air Intake and Output 11/20/16 11/21/16 19:00 07:00 Intake Total 300 ml 480 ml Output Total 55 ml 50 ml Balance 245 ml 430 ml Intake Oral 200 ml 480 ml IV Total 100 ml Output Drainage Total 55 ml 50 ml # Voids 4 Height (Feet): 5 Height (Inches): 7.00 Weight (Pounds): 299 Objective General: alert, cooperative, no distress, appears stated age Head: normocephalic, without obvious abnormality, atraumatic Eyes: conjunctivae/corneas clear. PERRL, EOM's intact Throat: lips, mucosa, and tongue normal. MMM Neck: supple, symmetrical, trachea midline, and no JVD Lungs: clear to auscultation bilaterally Heart: regular rate and rhythm, S1, S2 normal, no murmur, click, rub or gallop Abdomen: soft, non-tender, non-distended, bowel sounds normal; no masses or organomegaly Extremities: dressings c/d/i Pulses: 2+ and symmetric Skin: skin color, texture, turgor normal; no rashes or lesions Neurologic: grossly normal, no focal deficits ENID DAVIS Nov 21, 2016 15:50
[2016-11-21 16:00] VITALS: BP 139/58
[2016-11-21] MEDS ORDERED: Tubing IV Secondary IV ONE (21:33)
[2016-11-21] MEDS ORDERED: NS Irrig 1000ml ONE (21:33)
== END 2016-11-21 21:34 | disposition home health service (06) | DRG 909 ==
LOC: EMR 15:25 → 4E 15:27 → EDBEDREQ 16:24 → 3E 11-16 20:37
PROC: 0HD6XZZ Extraction of Back Skin, External Approach (ICD-10-PCS; principal; 2016-11-16 15:30)
PROC: 0JX70ZZ Transfer Back Subcutaneous Tissue and Fascia, Open Approach (ICD-10-PCS; principal; 2016-11-16 15:30)
DX: T81.31XA Disruption of external operation (surgical) wound, not elsewhere classified, initial encounter (principal); F32.9 Major depressive disorder, single episode, unspecified; Y83.8 Other surgical procedures as the cause of abnormal reaction of the patient, or of later complication, without mention of misadventure at the time of the procedure; L73.2 Hidradenitis suppurativa
CPT/HCPCS: 36415; 80048; 80053; 81003; 81025; 83605; 85025; 87040; 87081; 93005; 94003; 94150; J2250; J2405; J2710; J2765

== ENCOUNTER 2016-12-20 08:58 | Inpatient (IN) | payer OTHER ==
[~2016-12-20] VITALS: Ht 170.2 cm; Wt 136.1 kg
[2016-12-20] VITALS (15 sets, daily range): BP systolic 99–146; BP diastolic 60–89
--- NOTE | 2016-12-20 08:15 | Anethesia Preoperative Eval ---
Anesthesia Pre-op PMH/ROS General Date of Evaluation: Dec 20, 2016 Anesthesiologist: Wolf ASA Score: ASA 2 Mallampati Score Class I : Soft palate, uvula, fauces, pillars visible Class II: Soft palate, uvula, fauces visible Class III: Soft palate, base of uvula visible Class IV: Only hard plate visible Mallampati Classification: Class II Surgeon: Alaina Diagnosis: HS Surgical Procedure: Bilateral groin I&D and closure Anesthesia History: none Family History: no anesthesia problems Allergies: Coded Allergies: No Known Allergies (Unverified , 04/09/16) Medications: see eMAR Past Medical History Cardiovascular: Denies: CAD, HTN, SD, arrhythmia, other, valve dz Pulmonary: Denies: COPD, JOSÉ ANTONIO, asthma, other Gastrointestinal/Genitourinary: Reports: GERD, Denies: CRI, ESRD, other Neurologic/Psychiatric: Reports: depression/anxiety, Denies: CVA, TIA, dementia, other Endocrine: Denies: DM, hypothyroidism, other, steroids HEENT: Denies: [place] (L), [place] (R), cataract (L), cataract (R), glaucoma, other Hematology/Immune: Denies: DVT, anemia, bleeding disorder, other Musculoskeletal/Integumentary: Denies: DDD, DJD, OA, RA, edema, other Other: obesity PSxH Narrative: gastric bypass, multiple HS surgeries Anesthesia Pre-op Phys. Exam Physician Exam see chart Constitutional: NAD Cardiovascular: RRR Respiratory: CTA Airway Exam Mallampati Score: Class II MO: full ROM: full Teeth: intact Anesthesia Pre-op A/P Labs see chart Studies Pre-op Studies: EKG - sr Risk Assessment & Plan Assessment: ASA II Plan: GA Status Change Before Surgery: No Pre-Antibiotics Drug: Ancef 2g Given Within 1 Hr of Incision: Yes ZHANG SALDIVAR M.D. Dec 20, 2016 08:15
[2016-12-20] MEDS ORDERED: STOOL SOFTENER1 EAC3 PO (09:27)
[2016-12-20 10:09] LABS: BASOPHILS % (AUTO) 0.8 % (0.0-2.0); LYMPHOCYTES % (AUTO) 32.7 % (20.0-45.0); MEAN CORPUSCULAR HEMOGLOBIN 23.7 PG (27.0-31.0); MEAN CORPUSCULAR HGB CONC 30.1 G/DL (32.0-36.0); MEAN CORPUSCULAR VOLUME 79 FL (80-99); MONOCYTES % (AUTO) 8.5 % (1.0-10.0); NEUTROPHILS % (AUTO) 57.1 % (45.0-75.0); PLATELET COUNT 322 K/UL (150-450); RED BLOOD COUNT 4.27 M/UL (4.20-5.40); WHITE BLOOD COUNT 5.3 K/UL (4.8-10.8)
[2016-12-20 10:16] LABS: PROTHROMBIN TIME 10.3 SEC (9.30-11.50)
[2016-12-20 10:29] LABS: ANION GAP 14 (5-15); CALCIUM 9.2 mg/dL (8.6-10.2); CARBON DIOXIDE 24 mEQ/L (20-30); CHLORIDE 99 mEQ/L (98-107); CREATININE 0.6 mg/dL (0.5-0.9); GLOMERULAR FILTRATION RATE > 60 mL/min (>60); HEMOLYSIS 0; POTASSIUM 3.8 mEQ/L (3.4-4.9); SODIUM 137 mEQ/L (135-145)
[2016-12-20] MEDS ORDERED: Morphine Sulfate 4mg/ml Inj IVP PRN (10:45)
[2016-12-20] MEDS ORDERED: Morphine Sulfate 2mg/ml Inj IVP PRN (10:45)
--- NOTE | 2016-12-20 11:21 | Pre-Procedure Note/Attestation ---
Pre-Procedure Note/Attestation Complete Prior to Procedure Planned Procedure: bilateral Procedure Narrative: Bilateral groin wound debridement and flap closure Attestation I attest that I discussed the nature of the procedure; its benefits; risks and complications; and alternatives (and the risks and benefits of such alternatives ), prior to the procedure, with the patient (or the patient's legal advertising sales representative). I attest that, if there was a reasonable possibility of needing a blood transfusion, the patient (or the patient's legal advertising sales representative) was given the [facility] standardized written summary, pursuant to the [employer]ili Blood Safety Act ([place] Health and Safety Code # 1645, as amended). I attest that I re-evaluated the patient just prior to the surgery and that there has been no change in the patient's H&P, except as documented below: MARÍA ELENA LANDRUM Dec 20, 2016 11:21
[2016-12-20] MEDS ORDERED: Lidocaine 1% 10mg/ml/Epi 0.005mg/ml 30ml vial INJ ONE (11:54)
[2016-12-20] MEDS ORDERED: Bacitracin 50000 Units Vial ONE (11:54)
[2016-12-20] MEDS ORDERED: Dexamethasone 4mg/ml vial ONE (12:00)
[2016-12-20] MEDS ORDERED: Metoclopramide 10mg/2ml Inj ONE (12:00)
[2016-12-20] MEDS ORDERED: Zemuron 50mg/5ml Inj IV ONE (12:00)
[2016-12-20] MEDS ORDERED: Lidocaine 1% MPF 10mg/ml 5ml ONE (12:00)
[2016-12-20] MEDS ORDERED: Sterile Water Irrig 1000ml IRRIG ONE (12:00)
[2016-12-20] MEDS ORDERED: fentaNYL 100 mcg/2 mL IV ONE (12:00)
[2016-12-20] MEDS ORDERED: NS Irrig 1000ml ONE (12:00)
[2016-12-20] MEDS ORDERED: Ketorolac 30mg Inj ONE (12:00)
[2016-12-20] MEDS ORDERED: LR 1000ml ONE (12:00)
[2016-12-20] MEDS ORDERED: Propofol 10mg/ml 20ml IV ONE ×2 (12:00)
[2016-12-20] MEDS ORDERED: Midazolam 2mg/2ml Inj ONE (12:00)
[2016-12-20] MEDS ORDERED: LR 1000ml 1,000 ML IVLG SCH (12:06)
--- NOTE | 2016-12-20 12:08 | Immediate Post-Op Evaluation ---
Immediate Post-Op Evalulation Immediate Post-Op Evalulation Procedure: Bilateral groin I&D and wound closure Date of Evaluation: Dec 20, 2016 Time of Evaluation: 13:38 IV Fluids: 1L Blood Products: 0 Estimated Blood Loss: 50 Urinary Output: 0 Blood Pressure Systolic: 142 Blood Pressure Diastolic: 89 Pulse Rate: 83 Respiratory Rate: 16 O2 Sat by Pulse Oximetry: 100 Temperature (Fahrenheit): 97.6 Pain Score (1-10): 0 Nausea: No Vomiting: No Complications 0 Patient Status: awake, reacts, patent, none Hydration Status: adequate Drug: Ancef 2g Given Within 1 Hr of Incision: Yes Time Given: 11:55 ZHANG SALDIVAR M.D. Dec 20, 2016 12:08
[2016-12-20] MEDS ORDERED: fentaNYL 100 mcg/2 mL IV PRN (12:15)
[2016-12-20] MEDS ORDERED: Midazolam 2mg/2ml Inj IVP PRN (12:15)
[2016-12-20] MEDS ORDERED: LORazepam Inj 2mg/ml 1ml IV PRN ×2 (12:15→15:30)
[2016-12-20] MEDS ORDERED: Hydromorphone 0.5mg/0.5ml inj IVP PRN ×2 (12:15→15:30)
[2016-12-20] MEDS ORDERED: DiphenhydrAMINE 50mg/ml Inj IVP PRN ×2 (12:15→15:30)
[2016-12-20] MEDS ORDERED: Metoclopramide 10mg/2ml Inj IVP PRN (12:15)
--- NOTE | 2016-12-20 13:25 | Operative Note - PDOC ---
Operative Note Operative Note Pre-op Diagnosis: Bilateral groin infection Procedure: Bilateral groin wound debridement and flap closure Surgeon: Alaina Die Cutter: Harman Anesthesia: general Specimen: yes Complications: none Condition: stable Estimated Blood Loss: none Drains: none Implant(s) used?: No MARÍA ELENA LANDRUM Dec 20, 2016 13:25
[2016-12-20] MEDS ORDERED: Mylanta II UD 30ml ORAL PRN (15:30)
[2016-12-20] MEDS ORDERED: Milk of Magnesia 30ml Ud ORAL PRN (15:30)
[2016-12-20] MEDS ORDERED: Norco 10mg/325mg tab ORAL PRN (15:30)
[2016-12-20] MEDS ORDERED: Miralax 17gm pkt ORAL PRN (15:30)
[2016-12-20] MEDS ORDERED: Norco 5mg/325mg tab ORAL PRN (15:30)
[2016-12-20] MEDS ORDERED: Zolpidem 5mg tab ORAL PRN (15:30)
--- NOTE | 2016-12-20 19:51 | History and Physical ---
History of Present Illness General Date patient seen: Dec 20, 2016 Time patient seen: 19:44 Reason for Hospitalization: bilateral groin infection, HS Present Illness HPI 41 y/o female with a PMH of morbid obesity, polycystic ovarian disease, GERD, MDD, and HS presented today for bilateral groin infection s/p wound debridement and flap closure with Dr. Foley earlier today, POD#0. No postop/periop complications. Denies chest pain, SOB, n/v. Able to sip on ice chips and sips of water. Pain well-controlled. Allergies: Coded Allergies: No Known Allergies (Unverified , 04/09/16) Medication History Scheduled Escitalopram Oxalate* (Lexapro*), 10 MG ORAL DAILY, (Reported) Scheduled PRN Ondansetron Odt* (Zofran Odt*), 4 MG ORAL Q6H PRN for Nausea & Vomiting, ( Reported) Oxycodone/Acetaminophen 5-325* (Percocet 5-325 Mg Tablet*), 1 TAB ORAL Q4H PRN for For Pain, (Reported) Miscellaneous Medications Sennosides/Docusate Sodium (Stool Softener Tablet), 1 EACH PO, (Reported) Patient History Healthcare decision maker Resuscitation status Advanced Directive on File Family History Family History: Patient reports no known family medical history. Physical Exam General Appearance: no apparent distress, alert HEENT: normocephalic, atraumatic, PERRL Neck: non-tender, supple, normal inspection Respiratory/Chest: lungs clear, normal breath sounds, no respiratory distress Cardiovascular/Chest: normal peripheral pulses, normal rate, regular rhythm Abdomen: normal bowel sounds, non tender, soft Extremities: normal range of motion, non-tender, non-pitting, no edema Skin Exam: normal pigmentation, warm/dry, other - bilateral groin c/d/i, with wound dressing Neurologic: horticultural specialty grower field II-XII grossly normal Last 24 Hour Vital Signs Date Time Temp Pulse Resp B/P Pulse Ox O2 Delivery O2 Flow Rate FiO2 12/20/16 15:30 97.7 73 15 112/64 99 Nasal Cannula 3.0 12/20/16 14:56 97.4 66 15 108/63 100 Nasal Cannula 3.0 12/20/16 14:49 97.4 12/20/16 14:45 64 14 114/64 100 Nasal Cannula 3.0 12/20/16 14:30 66 13 118/62 100 Nasal Cannula 3.0 12/20/16 14:15 62 15 119/74 100 Nasal Cannula 3.0 12/20/16 14:00 60 13 136/85 100 Nasal Cannula 3.0 12/20/16 13:45 63 14 136/85 100 Simple Mask 6.0 12/20/16 13:40 68 13 146/82 100 Simple Mask 6.0 12/20/16 13:37 83 16 100 12/20/16 13:33 97.6 72 14 142/89 100 Simple Mask 6.0 12/20/16 09:33 98.2 52 18 118/67 100 Room Air Laboratory Tests Test 12/20/16 09:00 12/20/16 09:50 Urine HCG, Qualitative Negative White Blood Count 5.3 K/UL (4.8-10.8) Red Blood Count 4.27 M/UL (4.20-5.40) Hemoglobin 10.1 G/DL (12.0-16.0) L Hematocrit 33.5 % (37.0-47.0) L Mean Corpuscular Volume 79 FL (80-99) L Mean Corpuscular Hemoglobin 23.7 PG (27.0-31.0) L Mean Corpuscular Hemoglobin Concent 30.1 G/DL (32.0-36.0) L Red Cell Distribution Width 14.0 % (11.6-14.8) Platelet Count 322 K/UL (150-450) Mean Platelet Volume 7.0 FL (6.5-10.1) Neutrophils (%) (Auto) 57.1 % (45.0-75.0) Lymphocytes (%) (Auto) 32.7 % (20.0-45.0) Monocytes (%) (Auto) 8.5 % (1.0-10.0) Eosinophils (%) (Auto) 1.0 % (0.0-3.0) Basophils (%) (Auto) 0.8 % (0.0-2.0) Prothrombin Time 10.3 SEC (9.30-11.50) Prothromb Time International Ratio 1.0 (0.9-1.1) Activated Partial Thromboplast Time 24 SEC (23-33) Sodium Level 137 mEQ/L (135-145) Potassium Level 3.8 mEQ/L (3.4-4.9) Chloride Level 99 mEQ/L (98-107) Carbon Dioxide Level 24 mEQ/L (20-30) Anion Gap 14 (5-15) Blood Urea Nitrogen 11 mg/dL (7-23) Creatinine 0.6 mg/dL (0.5-0.9) Estimat Glomerular Filtration Rate > 60 mL/min (>60) Glucose Level 91 mg/dL (74-106) Calcium Level 9.2 mg/dL (8.6-10.2) Height (Feet): 5 Height (Inches): 7.00 Weight (Pounds): 300 Medications Current Medications Medications (Trade) Dose Ordered Sig/Carl Route PRN Reason Start Time Stop Time Status Last Admin Dose Admin Acetaminophen (Tylenol) 650 mg Q4H PRN ORAL Mild Pain (Pain Scale 1-3) 12/20/16 15:30 01/19/17 15:29 Acetaminophen (Tylenol) 650 mg Q4H PRN ORAL fever 12/20/16 15:30 01/19/17 15:29 Acetaminophen/ Hydrocodone Bitart ([place] 10/325) 1 ea Q4H PRN ORAL Severe Pain (Pain Scale 7-10) 12/20/16 15:30 12/27/16 15:29 Acetaminophen/ Hydrocodone Bitart ([place] 5/325) 1 tab Q4H PRN ORAL Moderate Pain (Pain Scale 4-6) 12/20/16 15:30 12/27/16 15:29 Al Hydroxide/Mg Hydroxide (Mylanta II) 30 ml Q6H PRN ORAL dyspepsia 12/20/16 15:30 01/19/17 15:29 Bisacodyl (Dulcolax) 10 mg HSPRN PRN RECTAL Constipation 12/20/16 15:30 01/19/17 15:29 Dextrose (Dextrose 50%) STAT PRN IV Hypoglycemia 12/20/16 15:30 01/19/17 15:29 Diphenhydramine HCl (Benadryl) 12.5 mg Q6H PRN IVP Itching/Pruritis 12/20/16 15:30 01/19/17 15:29 Diphenhydramine HCl (Benadryl) 25 mg Q6H PRN ORAL Itching/Pruritis 12/20/16 15:30 01/19/17 15:29 Docusate Sodium (Colace) 100 mg EVERY 12 HOURS ORAL 12/20/16 21:00 01/19/17 20:59 Heparin Sodium (Porcine) (Heparin 5000 units/ml) 5,000 units EVERY 8 HOURS SUBQ 12/20/16 22:00 01/19/17 21:59 Hydromorphone HCl (Dilaudid) 0.5 mg Q3H PRN IVP Pain Score 1-3 12/20/16 15:30 12/27/16 15:29 Hydromorphone HCl (Dilaudid) 1 mg Q3H PRN IVP pain score 4-6 12/20/16 15:30 12/27/16 15:29 Hydromorphone HCl (Dilaudid) 2 mg Q3H PRN IVP pain score 7-10 12/20/16 15:30 12/27/16 15:29 Lorazepam (Ativan 2mg/ml 1ml) 0.5 mg Q4H PRN IV For Anxiety 12/20/16 15:30 12/27/16 15:29 Magnesium Hydroxide (Mom) 30 ml HSPRN PRN ORAL Constipation 12/20/16 15:30 01/19/17 15:29 Ondansetron HCl (Zofran) 4 mg Q6H PRN IVP Nausea & Vomiting 12/20/16 15:30 01/19/17 15:29 Polyethylene Glycol (Miralax) 17 gm HSPRN PRN ORAL Constipation 12/20/16 15:30 01/19/17 15:29 Zolpidem Tartrate (Ambien) 5 mg HSPRN PRN ORAL Insomnia 12/20/16 15:30 01/19/17 15:29 Assessment/Plan Status: doing well Status Narrative 41 y/o female with PMH of HS and bilateral groin infection here for wound debridement and flap closure. Assessment/Plan #HS, bilateral groin infection - wound debridement and flap closure with Dr. Foley, POD#0 - tolerating full liquids, ADAT - pain control and supportive care - bowel regimen - heparin 5,000 units BID for DVT ppx #MDD - continue lexapro Will continue to follow. Thank you, Dr. Foley, for the consultation. Mari Naranjo N.P. Dec 20, 2016 19:51
[2016-12-20] MEDS ORDERED: Heparin 5000 units/ml inj SUBQ SCH (21:00)
--- NOTE | 2016-12-20 21:15 | Operative Note - Dictated ---
DATE OF OPERATION: 12/20/2016 PREOPERATIVE DIAGNOSIS: Bilateral groin wound infection. POSTOPERATIVE DIAGNOSIS: Bilateral groin wound infection. PROCEDURES: 1. Debridement of left groin wound infection. 2. Elevation of a superior fasciocutaneous lower abdominal flap for closure of left groin wound. 3. Elevation of an anterior medial thigh flap for closure of left groin wound. 4. Debridement of right lateral groin wound. 5. Elevation of a right lateral lower abdominal fasciocutaneous flap for closure of right lateral groin wound. 6. Elevation of a right lateral fasciocutaneous anterior thigh flap for closure of right lateral groin wound. 7. Debridement of right medial groin wound. 8. Elevation of a superior fasciocutaneous lower abdominal flap for closure of right medial groin wound. 9. Elevation of an anterior medial thigh flap for closure of right medial groin wound. SURGEON: Veronica Foley M.D. REGISTERED SAFETY ENGINEER: Raisa Hammer M.D. ANESTHESIA: General. COMPLICATIONS: None. DRAINS: None. DISPOSITION: Stable to the recovery room. INDICATIONS FOR SURGERY: This is a 41-year-old female, who is a well-established patient of [facility], who has undergone previous groin and thigh reconstruction for hidradenitis, who presents with bilateral groin wound infections status post reconstruction. She had two discrete areas in the right groin and one compound the area on the left groin and needed to be debrided. She was consented to undergo debridement with bilateral groin reconstruction. She understood the risks and benefits of surgery and agreed to proceed. DETAILS OF THE OPERATION: The patient was brought to the operating room and laid in the supine position on the operating table. Her bilateral lower extremities and lower abdomen were prepped and draped in a sterile usual fashion. We had preoperatively marked the area that needed to be debrided on both groins. The left groin area was a large confluent area, which was elliptically designed. Once the prep was completed, a #10 blade was then used to make elliptical incision to completely debride the infected and nonviable tissue. The tissue that was removed then resulted in a defect that measured 14 x 5 centimeters and was not amenable to primary closure. As such, a superior and inferior fasciocutaneous flaps had to be elevated. We first began by elevating a lower abdominal superior fasciocutaneous flap based off of perforators of the superficial inferior epigastric artery. Proximal and distal incisions were made to fully mobilize the flap. With this flap mobilized, it was noted that it was allowed for further closure of the wound, however, there was need from the inferior thigh flaps also be elevated to allow for definitive closure. As such, an anterior medial thigh flap that was based off of perforators of the superficial femoral artery was also elevated with proximal and distal incisions made to fully mobilize the flap, both flaps fully mobilized and it was noted that the wound could be closed. The wound was copiously irrigated with pulse lavage irrigation and hemostasis was achieved and the wound was then closed by reapproximating the two flaps using #0 and 2-0 Vicryl sutures in a combination of melissa and 2-0 Prolene sutures were used to close the skin. We then turned our attention to the contralateral right groin where there was two discrete areas, one later and one medial, both were also elliptically designed for the excisional debridement. We first began by debriding the right lateral tissue, which was debrided using a #10 blade and then an electrocautery was used to dissect and remove the tissue all the way down to the level of the Rose's fascia. The defect that resulted here was 8 x 4 cm and this was also not amenable to primary closure. As such, a superior and inferior fasciocutaneous flaps had to be elevated. The superior lower abdominal flap was based off of perforators of the superficial inferior epigastric artery. The proximal and distal incisions made to fully mobilize this flap and in a similar fashion the corresponding anteromedial thigh flap based off of perforators of the superficial femoral artery was elevated. The proximal and distal incisions made to fully mobilize the flap. This would then allow for primary closure of the wound. However, this wound was not closed until we debrided the medial wound as well. This medial infected tissue was debrided using the #10 blade and an elliptical incision was made. The resultant in a defect that was 6 x 4 cm and it was amenable to primary closure. As such, two flap have to be elevated, one superior and one inferior for definitive wound closure of the flap that was elevated medially was based off of perforators of the superficial inferior epigastric artery with proximal and distal incisions made to fully mobilize the flap and an inferior medial thigh flap was based off of perforators of the superficial femoral artery as well as the pudendal artery given the location with proximal and distal incisions made the flaps were fully mobilized and both wounds were copiously irrigated with pulse lavage and both wounds of the flaps were accordingly advanced out to mid aspect of the wound and reapproximated using #0 and 2-0 Vicryl sutures. A combination of melissa and 2-0 Prolene sutures were used to close the skin. The patient tolerated the procedure well. There was no complications. Veronica Foley M.D. DR: EMIL JOB#: [id number] CC:
[2016-12-20] MEDS: Docusate 100mg cap ORAL SCH (21:38)
[2016-12-20] MEDS: Heparin 5000 units/ml inj SUBQ SCH (21:40)
[2016-12-21 00:22] VITALS: BP 99/48
[2016-12-21 04:00] VITALS: BP 115/53
[2016-12-21] MEDS: Heparin 5000 units/ml inj SUBQ SCH ×3 (06:22→21:48)
[2016-12-21 06:29] LABS: BASOPHILS % (AUTO) 0.6 % (0.0-2.0); MEAN CORPUSCULAR HEMOGLOBIN 23.6 PG (27.0-31.0); MEAN CORPUSCULAR HGB CONC 29.9 G/DL (32.0-36.0); MEAN CORPUSCULAR VOLUME 79 FL (80-99); MEAN PLATELET VOLUME 7.3 FL (6.5-10.1); MONOCYTES % (AUTO) 6.7 % (1.0-10.0); NEUTROPHILS % (AUTO) 69.7 % (45.0-75.0); PLATELET COUNT 307 K/UL (150-450); RED BLOOD COUNT 3.79 M/UL (4.20-5.40); RED CELL DISTRIBUTION WIDTH 14.3 % (11.6-14.8); WHITE BLOOD COUNT 6.9 K/UL (4.8-10.8)
[2016-12-21 06:43] LABS: ANION GAP 12 (5-15); CALCIUM 8.7 mg/dL (8.6-10.2); CARBON DIOXIDE 25 mEQ/L (20-30); CHLORIDE 106 mEQ/L (98-107); CREATININE 0.6 mg/dL (0.5-0.9); GLOMERULAR FILTRATION RATE > 60 mL/min (>60); HEMOLYSIS 0; POTASSIUM 3.9 mEQ/L (3.4-4.9); SODIUM 143 mEQ/L (135-145)
[2016-12-21 08:00] VITALS: BP 98/49
--- NOTE | 2016-12-21 08:13 | 48 Hour Post Anesthesia Eval ---
Post Anesthesia Evaluation Procedure: Bilateral groin I&D and wound closure Date of Evaluation: Dec 21, 2016 Time of Evaluation: 06:26 Blood Pressure Systolic: 115 0: 53 Pulse Rate: 69 Respiratory Rate: 19 Temperature (Fahrenheit): 98.1 O2 Sat by Pulse Oximetry: 96 Airway: patent Nausea: No Vomiting: No Pain Intensity: 2 Hydration Status: adequate Cardiopulmonary Status: Stable Mental Status/LOC: patient returned to baseline Follow-up Care/Observations: 0 Post-Anesthesia Complications: 0 Follow-up care needed: N/A Hung Gracia MD Dec 21, 2016 08:13
[2016-12-21] MEDS: Docusate 100mg cap ORAL SCH ×2 (08:25→21:46)
[2016-12-21] MEDS ORDERED: Oxycodone/Acetaminophen 5-325 ORAL PRN (09:15)
[2016-12-21] MEDS: Oxycodone/Acetaminophen 5-325 ORAL PRN ×3 (09:31→21:51)
[2016-12-21 12:00] VITALS: BP 111/71
--- NOTE | 2016-12-21 12:01 | General Progress Note ---
Progress Note Progress Note Pt seen and examined. POD# 1and doing well. Dressings CDI. Continue pain meds and IV abx. MARÍA ELENA Victor MD Dec 21, 2016 12:01
[2016-12-21 16:01] VITALS: BP 98/59
--- NOTE | 2016-12-21 16:11 | General Progress Note ---
Assessment/Plan Problem List: (1) Groin abscess Assessment & Plan: - s/p groin surgery POD#1 - IV abx - encourage mobilization/ambulation - encourage incentive spirometry to optimize pulmonary hygiene - DVT/GI prophylaxis as appropriate - ctm CBC and hemodynamics - ctm electrolytes, adjust/replete prn - PT/OT/ST, if indicated - pain control, supportive care, bowel regimen - DC planning ICD Codes: L02.214 - Cutaneous abscess of groin SNOMED: 21730765 Subjective Date patient seen: Dec 21, 2016 Time patient seen: 16:03 ROS Limited/Unobtainable: No Allergies: Coded Allergies: No Known Allergies (Unverified , 04/09/16) Subjective s/p wound surgery POD#1, no periop or postop complications. No chest pain or dyspnea, no palpitations. Postop pain well controlled. Objective Last 24 Hour Vital Signs Date Time Temp Pulse Resp B/P Pulse Ox O2 Delivery O2 Flow Rate FiO2 12/21/16 16:01 97.7 67 20 98/59 98 Room Air 12/21/16 12:00 97.7 69 20 111/71 99 Room Air 12/21/16 10:30 98.1 12/21/16 08:13 69 19 96 12/21/16 08:00 97.9 62 20 98/49 99 Room Air 12/21/16 04:00 98.1 69 19 115/53 96 Room Air 12/21/16 00:22 97.7 75 18 99/48 97 Room Air 12/20/16 20:28 99 Nasal Cannula 2.0 28 12/20/16 20:28 Nasal Cannula 2.0 28 12/20/16 20:00 97.7 59 19 99/60 100 Room Air 12/20/16 19:00 97.7 74 16 129/83 100 Nasal Cannula 3.0 12/20/16 16:45 97.4 62 18 108/64 99 Nasal Cannula 3.0 12/20/16 16:15 98.2 68 16 114/62 98 Nasal Cannula 3.0 Intake and Output 12/20/16 12/21/16 19:00 07:00 Intake Total 1540 ml 480 ml Output Total 50 ml Balance 1490 ml 480 ml Intake Oral 240 ml 480 ml IV Total 1300 ml Output Estimated Blood Loss 50 ml # Voids 1 2 Laboratory Tests 12/21/16 05:35: White Blood Count 6.9, Red Blood Count 3.79L, Hemoglobin 8.9L, Hematocrit 29.9L , Mean Corpuscular Volume 79L, Mean Corpuscular Hemoglobin 23.6L, Mean Corpuscular Hemoglobin Concent 29.9L, Red Cell Distribution Width 14.3, Platelet Count 307, Mean Platelet Volume 7.3, Neutrophils (%) (Auto) 69.7, Lymphocytes (%) (Auto) 23.0, Monocytes (%) (Auto) 6.7, Eosinophils (%) (Auto) 0.0, Basophils (%) (Auto) 0.6, Sodium Level 143, Potassium Level 3.9, Chloride Level 106, Carbon Dioxide Level 25, Anion Gap 12, Blood Urea Nitrogen 10, Creatinine 0.6, Estimat Glomerular Filtration Rate > 60, Glucose Level 110H, Calcium Level 8.7 Height (Feet): 5 Height (Inches): 7.00 Weight (Pounds): 300 Objective General: alert, cooperative, no distress, appears stated age Head: normocephalic, without obvious abnormality, atraumatic Eyes: conjunctivae/corneas clear. PERRL, EOM's intact Throat: lips, mucosa, and tongue normal. MMM Neck: supple, symmetrical, trachea midline, and no JVD Lungs: clear to auscultation bilaterally Heart: regular rate and rhythm, S1, S2 normal, no murmur, click, rub or gallop Abdomen: soft, non-tender, non-distended, bowel sounds normal; no masses or organomegaly Extremities: groin dressings c/d/i Pulses: 2+ and symmetric Skin: skin color, texture, turgor normal; no rashes or lesions Neurologic: grossly normal, no focal deficits ENID DAVIS Dec 21, 2016 16:11
[2016-12-21] MEDS: ceFAZolin sod 1 GM in D5W 55 ML IVPB SCH ×2 (16:57→21:46)
[2016-12-21 20:42] VITALS: BP 110/60
[2016-12-22 00:12] VITALS: BP 97/52
[2016-12-22 04:37] VITALS: BP 112/57
[2016-12-22] MEDS: ceFAZolin sod 1 GM in D5W 55 ML IVPB SCH ×3 (05:33→21:32)
[2016-12-22] MEDS: Heparin 5000 units/ml inj SUBQ SCH ×3 (05:34→21:31)
[2016-12-22] MEDS: Docusate 100mg cap ORAL SCH ×2 (08:27→21:00)
[2016-12-22] MEDS: Oxycodone/Acetaminophen 5-325 ORAL PRN ×3 (08:31→21:42)
[2016-12-22 08:32] VITALS: BP 103/55
[2016-12-22 12:27] VITALS: BP 114/73
[2016-12-22] MEDS ORDERED: Tubing IV Secondary IV ONE (15:15)
[2016-12-22] MEDS ORDERED: NS 275ml ONE (15:15)
[2016-12-22 15:35] VITALS: BP 101/58
--- NOTE | 2016-12-22 15:52 | General Progress Note ---
Assessment/Plan Problem List: (1) Groin abscess Assessment & Plan: - s/p groin surgery POD#2 - IV abx - encourage mobilization/ambulation - encourage incentive spirometry to optimize pulmonary hygiene - DVT/GI prophylaxis as appropriate - ctm CBC and hemodynamics - ctm electrolytes, adjust/replete prn - PT/OT/ST, if indicated - pain control, supportive care, bowel regimen - DC planning ICD Codes: L02.214 - Cutaneous abscess of groin SNOMED: 82230317 Subjective Date patient seen: Dec 22, 2016 Time patient seen: 15:51 Allergies: Coded Allergies: No Known Allergies (Unverified , 04/09/16) Subjective s/p wound surgery POD#2, no periop or postop complications. No chest pain or dyspnea, no palpitations. Postop pain well controlled. Objective Last 24 Hour Vital Signs Date Time Temp Pulse Resp B/P Pulse Ox O2 Delivery O2 Flow Rate FiO2 12/22/16 15:35 97.9 68 20 101/58 97 Room Air 12/22/16 14:51 98.0 12/22/16 12:27 98.0 87 20 114/73 95 Room Air 12/22/16 08:32 97.1 61 20 103/55 98 Room Air 12/22/16 04:37 97.5 63 17 112/57 97 Room Air 12/22/16 00:12 98.4 89 19 97/52 100 Room Air 12/21/16 20:42 98.8 68 20 110/60 99 Room Air 12/21/16 19:55 98 Room Air 12/21/16 19:55 Room Air 12/21/16 16:01 97.7 67 20 98/59 98 Room Air Intake and Output 12/21/16 12/22/16 19:00 07:00 Intake Total 775 ml 480 ml Balance 775 ml 480 ml Intake Oral 720 ml 480 ml IV Total 55 ml # Voids 2 2 Height (Feet): 5 Height (Inches): 7.00 Weight (Pounds): 300 Objective General: alert, cooperative, no distress, appears stated age Head: normocephalic, without obvious abnormality, atraumatic Eyes: conjunctivae/corneas clear. PERRL, EOM's intact Throat: lips, mucosa, and tongue normal. MMM Neck: supple, symmetrical, trachea midline, and no JVD Lungs: clear to auscultation bilaterally Heart: regular rate and rhythm, S1, S2 normal, no murmur, click, rub or gallop Abdomen: soft, non-tender, non-distended, bowel sounds normal; no masses or organomegaly Extremities: groin dressings c/d/i Pulses: 2+ and symmetric Skin: skin color, texture, turgor normal; no rashes or lesions Neurologic: grossly normal, no focal deficits ENID DAVIS Dec 22, 2016 15:52
[2016-12-22 20:00] VITALS: BP 98/72
[2016-12-23] VITALS: BP 109/68
[2016-12-23 04:00] VITALS: BP 124/62
[2016-12-23] MEDS: ceFAZolin sod 1 GM in D5W 55 ML IVPB SCH (05:08)
[2016-12-23] MEDS: Heparin 5000 units/ml inj SUBQ SCH (06:47)
[2016-12-23 08:00] VITALS: BP 108/61
[2016-12-23] MEDS: Docusate 100mg cap ORAL SCH (09:00)
[2016-12-23] MEDS: HYDROmorphone 1mg/ml Carpuject IVP PRN ×2 (09:35→14:09)
--- NOTE | 2016-12-23 11:14 | Discharge Summary ---
Discharge Summary Hospital Course Date of Admission Dec 20, 2016 at 15:07 Date of Discharge Dec 23, 2016 Admitting Diagnosis Wound dehiscence/abscess Reason for Hospitalization: as above HPI Rosalia Griffin is a 41 year old female who was admitted on Dec 20, 2016 at 15 :07 for Bilateral Groin Consultations Surgery Procedures See operative reports Hospital Course 41 y/o female with hx of multiple gron surgeries, presented with wound dehiscence and abscess, taken to OR for debridement and flap closure. No periop or postop complications. Once wounds were cleared, she was dced home with HH on abx and pain meds and will f/u with surgeon in 1-2 weeks Discharge Medications Continued Medications: Escitalopram Oxalate* (Lexapro*) 10 Mg Tablet 10 MG ORAL DAILY, TAB Ondansetron Odt* (Zofran Odt*) 4 Mg Tab.rapdis 4 MG ORAL Q6H PRN for Nausea & Vomiting, #30 TAB Oxycodone/Acetaminophen 5-325* (Percocet 5-325 Mg Tablet*) 1 Each Tablet 1 TAB ORAL Q4H PRN for For Pain, TAB Sennosides/Docusate Sodium (Stool Softener Tablet) 1 Each Tablet 1 EACH PO, TAB Discharge Condition Upon Discharge: stable Discharge Disposition Patient was discharged to home Discharge Diagnoses: (1) Groin abscess ENID DAVIS Dec 23, 2016 11:14
[2016-12-23 12:00] VITALS: BP 108/69
[2016-12-23] MEDS ORDERED: CEPHALEXIN500 MG ORAL (13:10)
== END 2016-12-23 14:49 | disposition home or self-care (01) | DRG 571 ==
LOC: SUR 08:58 → 3E 15:07
DX: L02.214 Cutaneous abscess of groin (principal); Z68.42 Body mass index [BMI] 45.0-49.9, adult; T81.31XA Disruption of external operation (surgical) wound, not elsewhere classified, initial encounter; E66.01 Morbid (severe) obesity due to excess calories; K21.9 Gastro-esophageal reflux disease without esophagitis; F32.9 Major depressive disorder, single episode, unspecified; Y83.8 Other surgical procedures as the cause of abnormal reaction of the patient, or of later complication, without mention of misadventure at the time of the procedure
CPT/HCPCS: 36415; 80048; 81025; 85025; 85610; 85730; 94003; 94150; 94760; J2250; J2405; J2765